=== PATIENT | male | born 1980 | race Caucasian/White ===

== ENCOUNTER 2017-06-23 17:52 | Emergency (ER) | payer BC ==
[2017-06-23] MEDS ORDERED: HYDROmorphone 0.5 MG/0.5 ML SYRINGE IVP STA (18:10)
[2017-06-23] MEDS ORDERED: KETOROLAC 30 MG/ML 1 ML VIAL IVP STA (18:10)
[2017-06-23] MEDS ORDERED: SODIUM CHLORIDE 0.9% 1,000 ML IV STA ×2 (18:10)
--- NOTE | 2017-06-23 18:18 | ED ---
Abdominal Pain HPI - General Chief Complaint: Abdominal Pain Stated Complaint: Abdominal pain Time Seen by Provider: 06/23/17 18:05 Source: patient, RN notes reviewed, old records reviewed Mode of arrival: ambulatory Limitations: no limitations - History of Present Illness Initial Comments: This is a 36-year-old male presents emergency Department chief complaint of severe right lower quadrant abdominal pain being towards his right flank. He has had this pain intermittently for the past 2 days it became very severe over the past 4 hours. Patient has had no fever or chills. Normal bowel movements and urinary habits. He reports that he had his appendix removed a few years ago. He still has his gallbladder, denies any history of kidney stones. Patient denies any recent fever, chills, shortness of breath, chest pain, back pain, abdominal pain, nausea vomiting, numbness or tingling, dysuria or hematuria, constipation or diarrhea, headaches or visual changes, or any other current symptoms - Related Data Previous Rx's Medication Instructions Recorded HYDROcodone/APAP 5-325MG [Bright[place] 1 tab PO Q6HR PRN #20 tab 06/23/17 5-325] Ketorolac [Toradol] 10 mg PO Q6HR #20 tab 06/23/17 Ondansetron Odt [Zofran Odt] 4 mg PO Q8HR PRN #12 tab 06/23/17 Tamsulosin [Flomax] 0.4 mg PO DAILY #10 cap 06/23/17 Allergies Allergy/AdvReac Type Severity Reaction Status Date / Time No Known Allergies Allergy Verified 06/23/17 18:53 Review of Systems ROS Statement: Those systems with pertinent positive or pertinent negative responses have been documented in the HPI. ROS Other: All systems not noted in ROS Statement are negative. Past Medical History Past Medical History: No Reported History History of Any Multi-Drug Resistant Organisms: None Reported Past Surgical History: Appendectomy, Hernia Repair Past Psychological History: No Psychological Hx Reported Smoking Status: Current every day smoker Past Alcohol Use History: None Reported Past Drug Use History: None Reported General Exam - General Exam Comments Initial Comments: This is a 36-year-old male, patient appears in moderate discomfort. Limitations: no limitations General appearance: alert, in no apparent distress Head exam: Present: atraumatic, normocephalic, normal inspection Eye exam: Present: normal appearance, PERRL, EOMI. Absent: scleral icterus, conjunctival injection, periorbital swelling ENT exam: Present: normal exam, mucous membranes moist Neck exam: Present: normal inspection. Absent: tenderness, meningismus, lymphadenopathy Respiratory exam: Present: normal lung sounds bilaterally. Absent: respiratory distress, wheezes, rales, rhonchi, stridor Cardiovascular Exam: Present: regular rate, normal rhythm, normal heart sounds. Absent: systolic murmur, diastolic murmur, rubs, gallop, clicks GI/Abdominal exam: Present: soft, tenderness (Right lower quadrant tenderness.) , normal bowel sounds. Absent: distended, guarding, rebound, rigid Extremities exam: Present: normal inspection, full ROM, normal capillary refill. Absent: tenderness, pedal edema, joint swelling, calf tenderness Back exam: Present: normal inspection Neurological exam: Present: alert, oriented X3, CN II-XII intact Psychiatric exam: Present: normal affect, normal mood Skin exam: Present: warm, dry, intact, normal color. Absent: rash Course Vital Signs 06/23/17 06/23/17 06/23/17 17:53 19:17 20:04 Temperature 98.3 F Pulse Rate 82 76 93 Respiratory 20 20 18 Rate Blood Pressure 156/88 159/94 131/59 O2 Sat by Pulse 99 99 95 Oximetry 06/23/17 20:36 Temperature 97.8 F Pulse Rate Respiratory Rate Blood Pressure O2 Sat by Pulse Oximetry Medical Decision Making - Medical Decision Making This is a 36-year-old male presents emergency Department chief complaint of severe right lower quadrant abdominal pain being towards his right flank. He has had this pain intermittently for the past 2 days it became very severe over the past 4 hours. Patient has had no fever or chills. Normal bowel movements and urinary habits. Patient does have significant right lower quadrant tenderness range towards right flank. Some minimal right CVA tenderness. Patient urinalysis positive for many red blood cells. Blood work was otherwise unremarkable. He is given IV fluids, pain medication and nausea medication. I did perform a CT without contrast. There is evidence of a 4 mm stone within the distal right ureter with evidence of hydronephrosis. I also give the patient a dose of Flomax, as well as further nausea and pain medicine. At this time I will discharge the patient with nausea medicine, pain medicine, Flomax. Discussed following up with urology. Discussed that his stone should pass. I did advise the patient on return parameters and he understands history plan will comply. - Lab Data Result diagrams: 06/23/17 18:21 06/23/17 18:21 Lab Results 06/23/17 06/23/17 06/23/17 Range/Units 18:21 18:21 18:21 WBC 9.8 (3.8-10.6) k/uL RBC 5.38 (4.30-5.90) m/uL Hgb 16.1 (13.0-17.5) gm/dL Hct 48.6 (39.0-53.0) % MCV 90.3 (80.0-100.0) fL MCH 29.9 (25.0-35.0) pg MCHC 33.1 (31.0-37.0) g/dL RDW 13.1 (11.5-15.5) % Plt Count 222 (150-450) k/uL Neutrophils % 45 % Lymphocytes % 42 % Monocytes % 5 % Eosinophils % 3 % Basophils % 1 % Neutrophils # 4.4 (1.3-7.7) k/uL Lymphocytes # 4.2 (1.0-4.8) k/uL Monocytes # 0.5 (0-1.0) k/uL Eosinophils # 0.3 (0-0.7) k/uL Basophils # 0.1 (0-0.2) k/uL Sodium 141 (137-145) mmol/L Potassium 4.4 (3.5-5.1) mmol/L Chloride 101 (98-107) mmol/L Carbon Dioxide 29 (22-30) mmol/L Anion Gap 11 mmol/L BUN 17 (9-20) mg/dL Creatinine 0.90 (0.66-1.25) mg/dL Est GFR (MDRD) Af Amer >60 (>60 ml/min/1.73 sqM) Est GFR (MDRD) Non-Af >60 (>60 ml/min/1.73 sqM) Glucose 108 H (74-99) mg/dL Plasma Lactic Acid Christian 1.2 (0.7-2.0) mmol/L Calcium 10.1 (8.4-10.2) mg/dL Total Bilirubin 0.4 (0.2-1.3) mg/dL AST 36 (17-59) U/L ALT 79 H (21-72) U/L Alkaline Phosphatase 82 (38-126) U/L Total Protein 7.9 (6.3-8.2) g/dL Albumin 4.7 (3.5-5.0) g/dL Amylase 52 (30-110) U/L Lipase 93 (23-300) U/L Urine Color Urine Appearance (Clear) Urine pH (5.0-8.0) Ur Specific [place] (1.001-1.035) Urine Protein (Negative) Urine Glucose (UA) (Negative) Urine Ketones (Negative) Urine Blood (Negative) Urine Nitrite (Negative) Urine Bilirubin (Negative) Urine Urobilinogen (<2.0) mg/dL Ur Leukocyte Esterase (Negative) Urine RBC (0-5) /hpf Urine WBC (0-5) /hpf Ur Squamous Epith Cells (0-4) /hpf Urine Bacteria (None) /hpf Urine Mucus (None) /hpf 06/23/17 Range/Units 18:21 WBC (3.8-10.6) k/uL RBC (4.30-5.90) m/uL Hgb (13.0-17.5) gm/dL Hct (39.0-53.0) % MCV (80.0-100.0) fL MCH (25.0-35.0) pg MCHC (31.0-37.0) g/dL RDW (11.5-15.5) % Plt Count (150-450) k/uL Neutrophils % % Lymphocytes % % Monocytes % % Eosinophils % % Basophils % % Neutrophils # (1.3-7.7) k/uL Lymphocytes # (1.0-4.8) k/uL Monocytes # (0-1.0) k/uL Eosinophils # (0-0.7) k/uL Basophils # (0-0.2) k/uL Sodium (137-145) mmol/L Potassium (3.5-5.1) mmol/L Chloride (98-107) mmol/L Carbon Dioxide (22-30) mmol/L Anion Gap mmol/L BUN (9-20) mg/dL Creatinine (0.66-1.25) mg/dL Est GFR (MDRD) Af Amer (>60 ml/min/1.73 sqM) Est GFR (MDRD) Non-Af (>60 ml/min/1.73 sqM) Glucose (74-99) mg/dL Plasma Lactic Acid Christian (0.7-2.0) mmol/L Calcium (8.4-10.2) mg/dL Total Bilirubin (0.2-1.3) mg/dL AST (17-59) U/L ALT (21-72) U/L Alkaline Phosphatase (38-126) U/L Total Protein (6.3-8.2) g/dL Albumin (3.5-5.0) g/dL Amylase (30-110) U/L Lipase (23-300) U/L Urine Color Yellow Urine Appearance Clear (Clear) Urine pH 6.0 (5.0-8.0) Ur Specific [place] 1.016 (1.001-1.035) Urine Protein Negative (Negative) Urine Glucose (UA) Negative (Negative) Urine Ketones Negative (Negative) Urine Blood Moderate H (Negative) Urine Nitrite Negative (Negative) Urine Bilirubin Negative (Negative) Urine Urobilinogen <2.0 (<2.0) mg/dL Ur Leukocyte Esterase Negative (Negative) Urine RBC 69 H (0-5) /hpf Urine WBC 1 (0-5) /hpf Ur Squamous Epith Cells <1 (0-4) /hpf Urine Bacteria Rare H (None) /hpf Urine Mucus Rare H (None) /hpf - Radiology Data Radiology results: report reviewed CT shows right sided hydronephrosis with hydroureter with a small obstructing calculus in the distal right ureter. Tachycardia was measures 4 mm. Disposition Clinical Impression: Right ureteral stone Disposition: HOME SELF-CARE Condition: Good Instructions: Ureteral Stones (ED) Additional Instructions: Patient is to rest, increase her fluid intake. Take the medications as prescribed. Follow-up with urologist. Return to emergency department if any alarming signs or symptoms occur. Prescriptions: HYDROcodone/APAP 5-325MG [Bright[place] 5-325] 1 tab PO Q6HR PRN #20 tab PRN Reason: Pain Ketorolac [Toradol] 10 mg PO Q6HR #20 tab Ondansetron Odt [Zofran Odt] 4 mg PO Q8HR PRN #12 tab PRN Reason: Nausea Tamsulosin [Flomax] 0.4 mg PO DAILY #10 cap Referrals: Alexis Langford MD [Primary Care Provider] - 1-2 days William Schmitt MD [STAFF PHYSICIAN] - 1-2 days Time of Disposition: 20:21
[2017-06-23 18:58] LABS: Basophils # (A) 0.1 k/uL (0-0.2); Basophils % (A) 1 %; Eosinophils # (A) 0.3 k/uL (0-0.7); Eosinophils % (A) 3 %; HCT 48.6 % (39.0-53.0); HGB 16.1 gm/dL (13.0-17.5); Lymphocytes # (A) 4.2 k/uL (1.0-4.8); Lymphocytes % (A) 42 %; MCH 29.9 pg (25.0-35.0); MCHC 33.1 g/dL (31.0-37.0); MCV 90.3 fL (80.0-100.0); Mean Platelet Volume 8.2; Monocytes # (A) 0.5 k/uL (0-1.0); Monocytes % (A) 5 %; Neutrophils # (A) 4.4 k/uL (1.3-7.7); Neutrophils % (A) 45 %; Platelet Count 222 k/uL (150-450); RBC 5.38 m/uL (4.30-5.90); RDW 13.1 % (11.5-15.5); WBC 9.8 k/uL (3.8-10.6)
[2017-06-23 19:02] LABS: Appearance,Urine Clear (Clear); Bacteria,Urine Rare /hpf; Bilirubin,Urine Negative (Negative); Blood,Urine Moderate (Negative); Color,Urine Yellow; Glucose,Urine (UA) Negative (Negative); Ketones,Urine Negative (Negative); Leukocyte Esterase,Urine Negative (Negative); Mucus,Urine Rare /hpf; Nitrite,Urine Negative (Negative); Protein,Urine Negative (Negative); RBC,Urine 69 /hpf (0-5); Specific Gravity,Urine 1.016 (1.001-1.035); Squamous Epithelial Cell,Urine <1 /hpf (0-4); Urobilinogen,Urine <2.0 mg/dL (<2.0); WBC,Urine 1 /hpf (0-5)
[2017-06-23] MEDS ORDERED: HYDROmorphone 2 MG/ML 1 ML SYRINGE IVP STA (19:11)
[2017-06-23] MEDS ORDERED: ONDANSETRON 4 MG/2 ML VIAL IVP STA (19:11)
[2017-06-23 19:13] LABS: ALT 79 U/L (21-72); AST 36 U/L (17-59); Albumin 4.7 g/dL (3.5-5.0); Alkaline Phosphatase 82 U/L (38-126); Amylase 52 U/L (30-110); Anion Gap 11 mmol/L; Blood Urea Nitrogen 17 mg/dL (9-20); Calcium 10.1 mg/dL (8.4-10.2); Carbon Dioxide 29 mmol/L (22-30); Chloride 101 mmol/L (98-107); Glucose 108 mg/dL (74-99); Lipase 93 U/L (23-300); Potassium 4.4 mmol/L (3.5-5.1); Sodium 141 mmol/L (137-145); Total Bilirubin 0.4 mg/dL (0.2-1.3); Total Protein 7.9 g/dL (6.3-8.2)
--- NOTE | 2017-06-23 19:46 | CT ---
EXAMINATION TYPE: CT abdomen pelvis wo con DATE OF EXAM: 06/23/2017 COMPARISON: NONE HISTORY: RLQ and back pain. No prior. CT DLP: 802.4 mGycm Automated exposure control for dose reduction was used. TECHNIQUE: Helical acquisition of images was performed from the lung bases through the pelvis. FINDINGS: Lung bases are clear. There is no pleural effusion. Liver spleen pancreas gallbladder appear normal. Bile ducts are not dilated. There is no adrenal mass. Kidneys have normal size. There is mild right-s ided hydronephrosis and hydroureter. There is a 4 mm calculus in the distal right ureter. Bladder is almost empty. There is no pelvic mass. I see no intestinal wall thickening. There are no dilated loop s. Appendix is not seen. There is no sign of appendicitis. There is no retroperitoneal adenopathy. I see no bony destructive process. IMPRESSION: THERE IS RIGHT-SIDED HYDRONEPHROSIS AND HYDROURETER WITH SMALL OBSTRUCTING CALCULUS IN THE DISTAL RIG HT URETER.
[2017-06-23] MEDS ORDERED: TAMSULOSIN 0.4 MG CAP.ER.24H PO STA (19:51)
[2017-06-23 20:06] VITALS: BP 131/59; PULSE 93; RESP 18
[2017-06-23 20:39] VITALS: TEMP 97.8
== END 2017-06-23 20:37 | disposition home or self-care (01) ==
LOC: EC 17:52
DX: N13.2 Hydronephrosis with renal and ureteral calculous obstruction (principal); F17.200 Nicotine dependence, unspecified, uncomplicated; Z90.49 Acquired absence of other specified parts of digestive tract; Z98.890 Other specified postprocedural states
CPT/HCPCS: 36415; 80053; 82150; 83605; 83690; 85025; 81001; 87040; 74176; 99285; 96374; 96376; 96375 ×2; 96361 ×2; J1170 ×2; J2405; J1885

== ENCOUNTER 2018-04-20 21:26 | Observation (INO) | payer BC ==
[2018-04-20] MEDS ORDERED: SODIUM CHLORIDE 0.9% 500 ML 500 ML IV STA (21:36)
[2018-04-20] MEDS ORDERED: ASPIRIN 81 MG PO STA (21:36)
--- NOTE | 2018-04-20 21:49 | ED ---
Chest Pain HPI - General Chief Complaint: Chest Pain Stated Complaint: Chest Pain Time Seen by Provider: 04/20/18 21:32 Source: patient Mode of arrival: ambulatory Limitations: no limitations - History of Present Illness Initial Comments: 37-year-old male patient presents to the emergency department today with chief complaint of chest pain. Patient states that he had pain present in his chest when he woke from sleep this morning. Patient states it is a dull, achy, vague pain to the substernal chest that radiates into the left shoulder. Patient states that he did go to work but did feel fatigued and unwell throughout the day. States he is having hot flashes and was becoming nauseated. Patient denies any shortness of breath or dizziness with this. He states that he did have some heartburn today. He denies any cough or congestion. States he does have history of high cholesterol. He is a cigarette smoker. Does have a family history of coronary artery disease in both his father and grandfather. Patient denies any recent rash, fever, chills, abdominal pain, diarrhea, constipation, back pain, numbness, tingling, weakness, hematuria, dysuria, urinary urgency, urinary frequency, headache, visual changes, or any other complaints. - Related Data Home Medications Medication Instructions Recorded Confirmed No Known Home Medications 04/20/18 04/20/18 Allergies Allergy/AdvReac Type Severity Reaction Status Date / Time No Known Allergies Allergy Verified 04/20/18 21:41 Review of Systems ROS Statement: Those systems with pertinent positive or pertinent negative responses have been documented in the HPI. ROS Other: All systems not noted in ROS Statement are negative. EKG Findings - EKG Comments: EKG Findings:: EKG obtained at 2137 shows normal sinus rhythm with possible left atrial enlargement. Ventricular rate 98, CT interval 146, QRS duration 84 , QT 352, QTc 449. No evidence of ST elevation or depression. Past Medical History Past Medical History: No Reported History History of Any Multi-Drug Resistant Organisms: None Reported Past Surgical History: Appendectomy, Hernia Repair Past Psychological History: No Psychological Hx Reported Smoking Status: Current every day smoker Past Alcohol Use History: None Reported Past Drug Use History: None Reported General Exam Limitations: no limitations General appearance: alert, in no apparent distress, other (This is a well- developed, well-nourished adult male patient in no acute distress. Vital signs upon presentation are temperature 99.0F, pulse 96, respirations 18, blood pressure 129/87, pulse ox 98% on room air.) Eye exam: Present: normal appearance, PERRL, EOMI. Absent: scleral icterus, conjunctival injection, periorbital swelling ENT exam: Present: normal exam, normal oropharynx, mucous membranes moist Respiratory exam: Present: normal lung sounds bilaterally. Absent: respiratory distress, wheezes, rales, rhonchi, stridor, chest wall tenderness Cardiovascular Exam: Present: regular rate, normal rhythm, normal heart sounds. Absent: systolic murmur, diastolic murmur, rubs, gallop, clicks GI/Abdominal exam: Present: soft, normal bowel sounds. Absent: distended, tenderness, guarding, rebound, rigid Neurological exam: Present: alert, oriented X3, CN II-XII intact Psychiatric exam: Present: normal affect, normal mood Skin exam: Present: warm, dry, intact, normal color. Absent: rash Course Vital Signs 04/20/18 04/20/18 21:27 22:00 Temperature 99.0 F Pulse Rate 96 89 Respiratory 18 22 Rate Blood Pressure 129/87 127/84 O2 Sat by Pulse 98 96 Oximetry Chest Pain MDM - MDM RADIOLOGY: Two-view x-ray of the chest is obtained. Heart mediastinum are normal. Lungs are clear. Diaphragm is normal. Bony thorax intact. There are chest leads. Impression by Dr. Anderson shows normal chest. MDM: 37-year-old male patient presented to the emergency department today for complaints of substernal chest pain radiating into the left shoulder. Patient also reported hot flashes and nausea throughout the day today. EKG showed normal sinus rhythm. Lungs are clear to auscultation with good air movement. Pain was not reproducible upon palpation. Labs reviewed and are unremarkable, initial troponin was negative. Chest x-ray showed no acute cardiopulmonary process. Given patient's symptoms and risk factors we will admit patient for evaluation by cardiology in the morning. We will start heparin. He is admitted to Dr. Ames's service. Disposition Clinical Impression: Chest pain Disposition: ADMITTED IP TO THIS [facility] Condition: Serious Referrals: Alexis Langford MD [Primary Care Provider] - 1-2 days Decision to Admit Reason: Admit from EC Decision Date: 04/20/18 Decision Time: 22:52
[2018-04-20 21:52] LABS: Basophils % (A) 1 %; Eosinophils # (A) 0.3 k/uL (0-0.7); Eosinophils % (A) 4 %; HCT 43.6 % (39.0-53.0); HGB 15.3 gm/dL (13.0-17.5); Lymphocytes # (A) 2.2 k/uL (1.0-4.8); Lymphocytes % (A) 31 %; MCH 31.5 pg (25.0-35.0); MCHC 35.2 g/dL (31.0-37.0); MCV 89.4 fL (80.0-100.0); Mean Platelet Volume 7.9; Monocytes # (A) 0.5 k/uL (0-1.0); Monocytes % (A) 7 %; Neutrophils % (A) 56 %; Platelet Count 189 k/uL (150-450); RBC 4.87 m/uL (4.30-5.90); RDW 12.3 % (11.5-15.5); WBC 7.1 k/uL (3.8-10.6)
[2018-04-20 22:02] LABS: ALT 98 U/L (21-72); AST 47 U/L (17-59); Albumin 4.3 g/dL (3.5-5.0); Alkaline Phosphatase 67 U/L (38-126); Anion Gap 9 mmol/L; Blood Urea Nitrogen 16 mg/dL (9-20); Calcium 9.6 mg/dL (8.4-10.2); Carbon Dioxide 26 mmol/L (22-30); Chloride 102 mmol/L (98-107); Glucose 193 mg/dL (74-99); Magnesium 1.9 mg/dL (1.6-2.3); Potassium 4.3 mmol/L (3.5-5.1); Sodium 137 mmol/L (137-145); Total Bilirubin 0.6 mg/dL (0.2-1.3); Total Protein 7.2 g/dL (6.3-8.2)
[2018-04-20 22:03] LABS: Partial Thromboplastin Time 25.9 sec (22.0-30.0); Prothrombin Time 9.5 sec (9.0-12.0)
[2018-04-20 22:10] LABS: Creatine Kinase 93 U/L (55-170)
[2018-04-20 22:23] LABS: Troponin I <0.012 ng/mL (0.000-0.034)
--- NOTE | 2018-04-20 22:35 | XR ---
EXAMINATION TYPE: XR chest 2V DATE OF EXAM: 04/20/2018 COMPARISON: NONE HISTORY: Chest pain TECHNIQUE: Frontal and lateral views of the chest are obtained. FINDINGS: Heart and mediastinum are normal. Lungs are clear. Diaphragm is normal. Bony thorax is int act. There are chest leads. IMPRESSION: Normal chest
[2018-04-20] MEDS ORDERED: MORPHINE SULFATE 2 MG/ML SYRINGE IVP PRN (22:48)
[2018-04-20] MEDS ORDERED: NITROGLYCERIN SL TABS 0.4 MG TAB SUBLINGUAL PRN (22:48)
[2018-04-20] MEDS ORDERED: HEPARIN SODIUM,PORCINE 5,000 UNIT/ML 1 ML VIAL IV ONE (22:48)
[2018-04-20] MEDS ORDERED: HEPARIN SOD,PORK IN 0.45% NACL 25,000 UNIT in 0.45% NACL 1 500ML.BAG IV SCH (23:00)
[2018-04-21 00:57] VITALS: BMI 31.8
[2018-04-21 05:00] LABS: Creatine Kinase 90 U/L (55-170)
[2018-04-21 05:05] VITALS: RESP 16
[2018-04-21 05:12] LABS: Creatine Kinase MB 1.1 ng/mL (0.0-2.4); Troponin I <0.012 ng/mL (0.000-0.034)
[2018-04-21 06:11] LABS: Mean Platelet Volume 7.5; Platelet Count 194 k/uL (150-450)
[2018-04-21 06:26] LABS: Cholesterol 240 mg/dL (<200); HDL Cholesterol 39 mg/dL (40-60); Triglycerides 406 mg/dL (<150)
[2018-04-21] MEDS ORDERED: ASPIRIN 325 MG TAB PO SCH (09:00)
[2018-04-21] MEDS: FENOFIBRATE 54 MG TAB PO SCH ×2 (11:58→12:03)
[2018-04-21 12:31] VITALS: BP 137/85; PULSE 97; TEMP 98.1
--- NOTE | 2018-04-21 12:42 | P.CRDCN ---
History of Present Illness History of present illness: This is a pleasant 37-year-old male past medical history significant for dyslipidemia on chronic nicotine dependence. He denies history of coronary artery disease, hypertension, diabetes mellitus and has never followed social service liaison for any reason. We've been asked to see him in consultation for chest pain. He states he woke up yesterday morning with a dull pressure senstation in the left precordial region. There is no radiation to the arm, back, neck or jaw. He denies associated shortness of breath, nausea, vomiting, palpitations, dizziness or diaphoresis. He proceeded to work as usual and worked all day long at a physically active job. The pain remained there all day long as a dull ache with no additional symptoms. At the end of the day he went home and started feeling flushed and nauseated. He presented to ED due to the additional symptoms that started. He states he still has the dull chest pain at the time of my exam, but the nausea has subsided. He denies shortness of breath, dizziness, palpitations or diaphoresis. He also denies cough, fever or chills. At the time of my exam: CONSTITUTIONAL: Denies fever. Denies chills. EYES: Denies blurred vision. Denies vision changes. Denies eye pain. EARS, NOSE, MOUTH & THROAT: Denies headache. Denies sore throat. Denies ear pain. CARDIOVASCULAR: Denies chest pain. Denies shortness of breath. Denies orthopnea. Denies PND. Denies palpitations. RESPIRATORY: Denies cough. GASTROINTESTINAL: Denies abdominal pain. Denies diarrhea. Denies constipation. Denies nausea. Denies vomiting. MUSCULOSKELETAL: Denies myalgias. INTEGUMENTARY: Denies pruitis. Denies rash. NEUROLOGIC: Denies numbness. Denies tingling. Denies weakness. PSYCHIATRIC: Denies anxiety. Denies depression. ENDOCRINE: Denies fatigue. Denies weight change. Denies polydipsia. Denies polyurina. GENITOURINARY: Denies burning, hematuria or urgency with micturation. HEMATOLOGIC: Denies history of anemia. Denies bleeding. Blood pressure 114/75 heart rate 77 afebrile maintaining oxygen saturation on room air GENERAL: This is a 37-year-old in no apparent distress at the time of my examination. HEENT: Head is atraumatic, normocephalic. Pupils are equal, round. Sclerae anicteric. Conjunctivae are clear. Mucous membranes of the mouth are moist. Neck is supple. There is no jugular venous distention. No carotid bruit is heard. LUNGS: Clear to auscultation no wheezes, rales or rhonchi. No chest wall tenderness is noted on palpation or with deep breathing. HEART: Regular rate and rhythm without murmurs, rubs or gallops. S1 and S2 heard. ABDOMEN: Soft, nontender. Bowel sounds are heard. No organomegaly noted. EXTREMITIES: No evidence of peripheral edema and no calf tenderness noted. VASCULAR: Radial and dorsalis pedis pulses palpated, no evidence of clubbing. NEUROLOGIC: Patient is awake, alert and oriented x3. ASSESSMENT Chest pain, atypical. An acute coronary event has been ruled out with no evidence of ischemia and negative cardiac enzymes. Hypertriglyceridemia Dyslipidemia Chronic nicotine dependence PLAN An acute coronary event has been ruled out with no EKG evidence of ischemia and negative cardiac enzymes. Obtain 2D echocardiogram and doppler study to assess cardiac structure and function. Perform exercise stress test to assess for stress induced cardiac ischemia. If abnormal will consider coronary angiography. Check TSH and hemoglobin A1c for underlying cause of hypertriglyceridemia. Recommend initiating him on fenofibrate 54 mg daily as well as initiating lifestyle modifications for lowering of triglycerides and total cholesterol. Smoking cessation discussed and highly recommended. Follow up with Dr. Amaya in 2-3 weeks. Thank you kindly for this consultation. Nurse Practitioner note has been reviewed, I agree with a documented findings and plan of care. Patient was seen and examined. Past Medical History Past Medical History: Hyperlipidemia History of Any Multi-Drug Resistant Organisms: None Reported Past Surgical History: Appendectomy, Hernia Repair Past Anesthesia/Blood Transfusion Reactions: No Reported Reaction Past Psychological History: No Psychological Hx Reported Smoking Status: Current every day smoker Past Alcohol Use History: None Reported Past Drug Use History: None Reported - Past Family History Father Family Medical History: Myocardial Infarction ([place]) Additional Family Medical History / Comment(s): possible small heart attack Mother Family Medical History: CVA/TIA Medications and Allergies Home Medications Medication Instructions Recorded Confirmed Type Fenofibrate [Lofibra] 54 mg PO DAILY #90 tab 04/21/18 Rx Allergies Allergy/AdvReac Type Severity Reaction Status Date / Time No Known Allergies Allergy Verified 04/20/18 21:41 Physical Exam Vitals: Vital Signs Temp Pulse Pulse Resp BP BP Pulse Ox 04/21/18 04:00 98.7 F 78 16 123/64 97 04/21/18 00:45 98.1 F 86 18 110/72 98 04/21/18 00:01 75 20 117/70 100 04/21/18 00:00 18 04/20/18 23:30 82 14 134/97 96 04/20/18 23:29 98.6 F 04/20/18 23:00 93 25 H 134/97 94 L 04/20/18 22:30 79 14 127/78 95 04/20/18 22:00 89 22 127/84 96 04/20/18 21:27 99.0 F 96 18 129/87 98 Intake and Output 04/20/18 04/21/18 04/21/18 22:59 06:59 14:59 Intake Total 139.667 Balance 139.667 Intake: Intake, IV Titration 139.667 Amount Heparin Sod,Pork in 0.45% 139.667 NaCl 25,000 unit In 0.45 % NaCl 1 500ml.bag @ 22 mls/hr IV .[id number] [facility] Rx #:[id number] Other: # Voids 2 Weight 95.254 kg 95.2 kg Results 04/21/18 05:46 04/20/18 21:40 Cardiac Enzymes 04/20/18 04/20/18 04/21/18 Range/Units 21:40 21:40 04:04 AST 47 (17-59) U/L CK-MB (CK-2) 1.0 1.1 (0.0-2.4) ng/mL Troponin I <0.012 <0.012 (0.000-0.034) ng/mL Coagulation 04/20/18 04/21/18 Range/Units 21:40 05:46 PT 9.5 (9.0-12.0) sec APTT 25.9 29.7 (22.0-30.0) sec Lipids 04/21/18 Range/Units 05:46 Triglycerides 406 H (<150) mg/dL Cholesterol 240 H (<200) mg/dL HDL Cholesterol 39 L (40-60) mg/dL CBC 04/20/18 04/21/18 Range/Units 21:40 05:46 WBC 7.1 (3.8-10.6) k/uL RBC 4.87 (4.30-5.90) m/uL Hgb 15.3 (13.0-17.5) gm/dL Hct 43.6 (39.0-53.0) % Plt Count 189 194 (150-450) k/uL Comprehensive Metabolic Panel 04/20/18 Range/Units 21:40 Sodium 137 (137-145) mmol/L Potassium 4.3 (3.5-5.1) mmol/L Chloride 102 (98-107) mmol/L Carbon Dioxide 26 (22-30) mmol/L BUN 16 (9-20) mg/dL Creatinine 0.78 (0.66-1.25) mg/dL Glucose 193 H (74-99) mg/dL Calcium 9.6 (8.4-10.2) mg/dL AST 47 (17-59) U/L ALT 98 H (21-72) U/L Alkaline Phosphatase 67 (38-126) U/L Total Protein 7.2 (6.3-8.2) g/dL Albumin 4.3 (3.5-5.0) g/dL Current Medications Generic Name Dose Route Start Last Admin Trade Name Freq PRN Reason Stop Dose Admin Aspirin 325 mg 04/21/18 09:00 04/21/18 07:38 Aspirin PO 325 mg DAILY AVTAR Administration Heparin Sodium/Sodium Chloride 500 mls @ 22 mls/hr 04/20/18 23:00 04/21/18 06 :35 25,000 unit/ Sodium Chloride IV 13.49 units/kg/hr .[id number] AVTAR 25.7 mls/hr Titration Protocol Morphine Sulfate 2 mg 04/20/18 22:48 Morphine Sulfate (Inj) IVP Q5M PRN Chest Pain Nitroglycerin 0.4 mg 04/20/18 22:48 Nitrostat SUBLINGUAL Q5M PRN Chest Pain Intake and Output 04/20/18 04/21/18 04/21/18 22:59 06:59 14:59 Intake Total 139.667 Balance 139.667 Intake: Intake, IV Titration 139.667 Amount Heparin Sod,Pork in 0.45% 139.667 NaCl 25,000 unit In 0.45 % NaCl 1 500ml.bag @ 22 mls/hr IV .[id number] [facility] Rx #:[id number] Other: # Voids 2 Weight 95.254 kg 95.2 kg 04/21/18 05:46 04/20/18 21:40
--- NOTE | 2018-04-21 13:49 | ECHOF ---
Referral Reason:cp MEASUREMENTS -------- HEIGHT: 172.7 cm WEIGHT: 94.8 kg BP: 123/64 RVIDd: 3.2 cm (< 3.3) IVSd: 1.3 cm (0.6 - 1.1) LVIDd: 3.6 cm (3.9 - 5.3) LVPWd: 1.1 cm (0.6 - 1.1) IVSs: 1.3 cm LVIDs: 2.6 cm LVPWs: 1.3 cm LAESV Index (A-L): 11.98 ml/m Ao Diam: 2.8 cm (2.0 - 3.7) AV Cusp: 1.8 cm (1.5 - 2.6) LA Diam: 3.0 cm (2.7 - 3.8) EPSS: 0.3 cm MV E Hugo: 0.94 m/s MV DecT: 172 ms MV A Hugo: 0.70 m/s MV E/A Ratio: 1.35 RAP: 5.00 mmHg RVSP: 12.10 mmHg MV EF SLOPE: 65.69 mm/s (70 - 150) MV EXCURSION: 1.59 cm (> 18.000) FINDINGS -------- Sinus rhythm. This was a technically difficult study with suboptimal views. The left ventricular size is normal. There is mild concentric left ventricular hypertrophy. Overa ll left ventricular systolic function is normal with, an EF between 55 - 60 %. The right ventricle is normal in size and function. Normal LA size by volume 22+/-6 ml/m2. The right atrium is normal in size. 3 ml of Lumason was utilized for enhancement of images. The aortic valve is trileaflet, and appears structurally normal. No aortic stenosis or regurgitation. The mitral valve is normal. There is trace to mild mitral regurgitation. Trace tricuspid regurgitation present. Right ventricular systolic pressure is normal at < 35 mmHg. There is no evidence of pulmonary hypertension. Trace/mild (physiologic) pulmonic regurgitation. The aortic root size is normal. Normal inferior vena cava with normal inspiratory collapse consistent with estimated right atrial pre ssure of 5 mmHg. There is no pericardial effusion. CONCLUSIONS -------- 1. Sinus rhythm. 2. This was a technically difficult study with suboptimal views. 3. The left ventricular size is normal. 4. There is mild concentric left ventricular hypertrophy. 5. Overall left ventricular systolic function is normal with, an EF between 55 - 60 %. 6. Normal LA size by volume 22+/-6 ml/m2. 7. 3 ml of Lumason was utilized for enhancement of images. 8. The aortic valve is trileaflet, and appears structurally normal. No aortic stenosis or regurgitati on. 9. There is trace to mild mitral regurgitation. 10. Trace tricuspid regurgitation present. 11. Right ventricular systolic pressure is normal at < 35 mmHg. 12. There is no evidence of pulmonary hypertension. 13. Trace/mild (physiologic) pulmonic regurgitation. 14. The aortic root size is normal. 15. There is no pericardial effusion. BUSINESS REPORTER: Mannie Choudhury RDCS
--- NOTE | 2018-04-21 13:55 | EST ---
EXERCISE STRESS AGE: 37 SEX: M HT: 68" WT: 209 PROTOCOL: Arpit Stress Test STAGE: 3 DURATION OF EXERCISE: 9:00 HEART RATE REST: 92 BLOOD PRESSURE REST: 126/74 MAXIMUM HEART RATE ACHIEVED: 158 MAXIMUM BLOOD PRESSURE: 170/88 85% MPHR: 156 100% MPHR: 183 METS: 10.1 INDICATIONS: Chest pain. CLINICAL INFORMATION: STRESS DATA: Pretesting physical examination showed a heart rate of 92, pressure is 126/74 mmHg. Baseline EKG showed sinus mechanism. The patient exercised on the treadmill according to Arpit protocol for a total of 9 minutes and achieved 10.1 METS. Max heart rate was 158 which is about 86% of maximum predicted heart rate. Maximum blood pressure was 170/88 mmHg. Clinically, the patient did not have any symptoms of chest pain or chest discomfort during the testing or in the recovery period. The EKG did not show any significant ST or T-wave abnormalities concerning for ischemia. CONCLUSION: 1. Excellent exercise tolerance. 2. Normal EKG in response to exercise. 3. Essentially normal stress test for the patient. MMODL / IJN: [id number] /
[2018-04-21] MEDS ORDERED: NICOTINE 21MG/24HR PATCH TRANSDERM SCH (14:15)
--- NOTE | 2018-04-21 15:12 | DS ---
DISCHARGE SUMMARY HISTORY AND PHYSICAL/DISCHARGE SUMMARY: DATE OF ADMISSION: 04/20/2018 DATE OF DISCHARGE: 04/21/2018 DATE OF SERVICE: 04/21/2018 PRESENTING COMPLAINT: Chest pain. HISTORY OF PRESENTING COMPLAINT: This is a pleasant 37-year-old patient of Dr. Langford. Chronic stable medical conditions include hyperlipidemia, migraines. Patient presented with 1-day history of left parasternal dull stabbing pain, present constant on and off for most of the day. No shortness of breath. No dizziness. No lightheadedness. No fever. No chills. No cough. Somewhat worse with activity. Patient is reasonably active. No prior cardiac history. Patient's father had a heart attack and patient's grandfather had 3 heart attacks. Patient is concerned and decided to come in. REVIEW OF SYSTEMS: CONSTITUTIONAL: None. HEENT: None. RESPIRATORY: None. CARDIOVASCULAR: As above. GASTROINTESTINAL: None. GENITOURINARY: None. MUSCULOSKELETAL: As above. DERMATOLOGICAL: None. HEMATOLOGICAL: None. LYMPHATIC: None. PSYCHIATRY: None. NEUROLOGICAL: None. PAST MEDICAL HISTORY: Of migraines, hyperlipidemia. PAST SURGICAL HISTORY: Appendectomy, hernia repair. SOCIAL HISTORY: Patient has smoked a pack a day. Lives by himself with his kids. 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 Does not drink any alcohol. FAMILY HISTORY: Grandfather 3 attacks. Father had 1 heart attack. HOME MEDICATIONS: Lofibra 54 mg a day. ALLERGIES: None. PHYSICAL EXAMINATION: Temperature 98.1, pulse 97., respiration 16, blood pressure 137/85, pulse ox 96% on room air. GENERAL APPEARANCE: Well built, BMI 31.9. Sitting up, comfortable. EYES: Pupils are, conjunctivae are normal. HEENT: External appearance of nose and ears normal. Oral cavity normal. NECK: JVD not raised. Mass not palpable. RESPIRATORY: Effort normal. Lungs are clear. CARDIOVASCULAR: First and second sounds are normal, no edema. ABDOMEN: Soft, nontender. Liver and spleen not palpable. LYMPHATIC: No lymph node palpable in neck or axillae. PSYCHIATRY: Alert and oriented x3. Mood and affect normal. NEUROLOGICAL: Pupils equal. Cranial nerves grossly intact. Power and sensation grossly intact. INVESTIGATIONS: White count 7.1, hemoglobin 15.3, potassium 4.3, triglycerides 406, TSH 2.4. Troponin x2 negative. Chest x-ray film, personally reviewed by me, showed some cardiomegaly with lung arana are clear. EKG tracing personally reviewed by me shows normal sinus rhythm. A 2D echocardiogram, EF of 55%-60%, otherwise unremarkable. Stress test showed good exercise tolerance. ASSESSMENT: 1. Left anterior chest wall pain probably musculoskeletal. Cardiac cause was ruled out. Initially felt to be cardiac given patient's risk factors of hyperlipidemia, smoking and positive family history and obesity. 2. Chronic nicotine dependence, patient is a cigarette smoker. 3. Hyperlipidemia. 4. Obesity, body mass index of 31.9. PLAN: Patient did have a stress test that was negative. Advised against smoking, given a nicotine patch. Patient will be discharged on the baby aspirin and his lipid lower medication. Patient to lose weight. Should follow up with his family doctor. DISCHARGE MEDICATIONS: 1. Aspirin 81 mg a day. 2. Lofibra 90 mg a day. 3. Nicotine patch 21 mg a day. FOLLOWUP: Follow up with Dr. Langford in a week. Follow up with Dr. Amaya in 2 weeks. MMODL / IJN: [id number] /
[2018-04-21 20:22] LABS: Hemoglobin A1C 6.1 % (4.0-6.0)
== END 2018-04-21 14:57 | disposition home or self-care (01) ==
LOC: EC 21:26 → 1SOBS 23:34
PROVIDERS: ADMIT Hospitalist; ATTEND Hospitalist
DX: R07.89 Other chest pain (principal); R11.0 Nausea; R53.83 Other fatigue; R23.2 Flushing; E78.5 Hyperlipidemia, unspecified; E78.1 Pure hyperglyceridemia; G43.909 Migraine, unspecified, not intractable, without status migrainosus; Z68.31 Body mass index [BMI] 31.0-31.9, adult; E66.9 Obesity, unspecified; F17.210 Nicotine dependence, cigarettes, uncomplicated; Z90.89 Acquired absence of other organs; Z82.49 Family history of ischemic heart disease and other diseases of the circulatory system; Z82.3 Family history of stroke
CPT/HCPCS: 96376; 96365; 99285; 36415; 93005; 93017; 93306; 80061; 80053; 84443; 82550 ×2; 82553 ×2; 83735; 84484 ×2; 85025; 85049; 85610; 85730 ×2; 83036; 71046; G0378 ×2; J1644 ×2; Q9950

== ENCOUNTER 2019-09-29 16:00 | Emergency (ER) | payer BC ==
--- NOTE | 2019-09-29 16:21 | ED ---
Headache HPI - General Chief Complaint: Headache Stated Complaint: head pain Time Seen by Provider: 09/29/19 16:20 Mode of arrival: ambulatory Limitations: no limitations - History of Present Illness Initial Comments: Patient presents the ED for evaluation of headache. Patient states that he developed a sudden onset right temporoparietal headache 9 days ago while jogging, and he states that he has had an intermittent right-sided headache ever since then. Patient also states that he has had intermittent blurry vision out of his left eye since his headache began. Patient states that he has a history of migraine headaches, but he denies having this type of a headache in the past. Patient states that he has been alternating ibuprofen and Tylenol today without much relief. Patient states that his headache is currently 7/10. Patient states that his headache is worse with activity. Patient states that he has a family history of brain aneurysms. Patient denies trauma or injury, LOC, neck pain or stiffness, fever or chills, focal numbness or weakness, speech diffic ulty, dizziness, chest pain, dyspnea, cough or cold symptoms, palpitations, nausea or vomiting, abdominal pain, or any other symptoms or complaints. - Related Data Previous Rx's Medication Instructions Recorded Aspirin 81 mg PO DAILY #30 chewable 04/21/18 Fenofibrate [Lofibra] 54 mg PO DAILY #90 tab 04/21/18 Nicotine 21Mg/24Hr Patch [Habitrol] 1 patch TRANSDERM DAILY #30 patch 04/21/18 Allergies Allergy/AdvReac Type Severity Reaction Status Date / Time No Known Allergies Allergy Verified 09/29/19 16:08 Review of Systems ROS Statement: Those systems with pertinent positive or pertinent negative responses have been documented in the HPI. ROS Other: All systems not noted in ROS Statement are negative. Past Medical History Past Medical History: Hyperlipidemia, Sleep Apnea/CPAP/BIPAP Additional Past Medical History / Comment(s): migraines History of Any Multi-Drug Resistant Organisms: None Reported Past Surgical History: Appendectomy, Hernia Repair Past Anesthesia/Blood Transfusion Reactions: No Reported Reaction Past Psychological History: No Psychological Hx Reported Smoking Status: Current every day smoker Past Alcohol Use History: None Reported Past Drug Use History: None Reported - Past Family History Father Family Medical History: Myocardial Infarction (DC) Additional Family Medical History / Comment(s): possible small heart attack Mother Family Medical History: CVA/TIA General Exam Limitations: no limitations General appearance: alert, in no apparent distress Head exam: Present: atraumatic, normocephalic, other (No scalp/facial/temporal swelling or tenderness is appreciated) Eye exam: Present: normal appearance, PERRL, EOMI ENT exam: Present: normal oropharynx, mucous membranes moist Neck exam: Present: other (No nuchal rigidity; trachea is in midline). Absent: tenderness, meningismus Respiratory exam: Present: normal lung sounds bilaterally. Absent: respiratory distress, wheezes, rales, rhonchi Cardiovascular Exam: Present: regular rate, normal rhythm, normal heart sounds, other (Normal radial pulses bilaterally) GI/Abdominal exam: Present: soft. Absent: distended, tenderness, guarding Extremities exam: Present: full ROM. Absent: pedal edema Neurological exam: Present: alert, oriented X3, CN II-XII intact. Absent: motor sensory deficit Psychiatric exam: Present: normal affect, normal mood Skin exam: Present: warm, dry, intact, normal color Course Vital Signs 09/29/19 16:03 Temperature 98.1 F Pulse Rate 92 Respiratory 18 Rate Blood Pressure 142/97 O2 Sat by Pulse 99 Oximetry - Reevaluation(s) Reevaluation #1: 09/29/19 17:56 Patient states that his headache has improved with ED treatment, and he denies development of any new symptoms while in the ED. Patient remains alert and breathing comfortably. Patient continues to have a normal/nonfocal neurological exam. Patient is aware of his test results, and he is comfortable being discharged home at this time. Medical Decision Making - Medical Decision Making Patient's CT angiogram head is negative for acute intracranial abnormality or aneurysm. Patient has a history of migraine headaches. I suspect a benign etiology of the patient's headaches. Patient was counseled about headaches, and he was clearly explained return and follow-up instructions. He feels comfortable with this plan. - Lab Data Result diagrams: 09/29/19 16:20 09/29/19 16:20 Lab Results 09/29/19 09/29/19 Range/Units 16:20 16:20 WBC 9.3 (3.8-10.6) k/uL RBC 5.25 (4.30-5.90) m/uL Hgb 16.0 (13.0-17.5) gm/dL Hct 47.1 (39.0-53.0) % MCV 89.6 (80.0-100.0) fL MCH 30.4 (25.0-35.0) pg MCHC 33.9 (31.0-37.0) g/dL RDW 12.0 (11.5-15.5) % Plt Count 226 (150-450) k/uL Neutrophils % 55 % Lymphocytes % 32 % Monocytes % 6 % Eosinophils % 5 % Basophils % 1 % Neutrophils # 5.2 (1.3-7.7) k/uL Lymphocytes # 2.9 (1.0-4.8) k/uL Monocytes # 0.5 (0-1.0) k/uL Eosinophils # 0.5 (0-0.7) k/uL Basophils # 0.1 (0-0.2) k/uL Sodium 136 L (137-145) mmol/L Potassium 4.4 (3.5-5.1) mmol/L Chloride 102 (98-107) mmol/L Carbon Dioxide 26 (22-30) mmol/L Anion Gap 8 mmol/L BUN 16 (9-20) mg/dL Creatinine 0.74 (0.66-1.25) mg/dL Est GFR (CKD-EPI)AfAm >90 (>60 ml/min/1.73 sqM) Est GFR (CKD-EPI)NonAf >90 (>60 ml/min/1.73 sqM) Glucose 119 H (74-99) mg/dL Calcium 9.7 (8.4-10.2) mg/dL - Radiology Data Radiology results: report reviewed (CT angiogram head shows no acute intracranial abnormality and no aneurysm) Disposition Clinical Impression: Headache Disposition: HOME SELF-CARE Condition: Stable Instructions (If sedation given, give patient instructions): Acute Headache (ED), Migraine Headache (ED) Additional Instructions: Return to the ER immediately should you develop new or worsening pain, neck stiffness, a fever, numbness or weakness, speech or vision changes, dizziness, chest pain, shortness of breath, persistent vomiting, or new or worsening symptoms. Follow up closely with your primary care provider. Is patient prescribed a controlled substance at d/c from ED?: No Referrals: Alexis Langford MD [Primary Care Provider] - 1-2 days Time of Disposition: 17:58
[2019-09-29] MEDS ORDERED: METOCLOPRAMIDE 5 MG/ML 2 ML VIAL IVP STA (16:27)
[2019-09-29] MEDS ORDERED: SODIUM CHLORIDE 0.9% 1,000 ML IV STA (16:27)
[2019-09-29] MEDS ORDERED: diphenhydrAMINE 50 MG/ML 1 ML VIAL IVP STA (16:27)
[2019-09-29 16:46] LABS: Basophils # (A) 0.1 k/uL (0-0.2); Basophils % (A) 1 %; Eosinophils # (A) 0.5 k/uL (0-0.7); Eosinophils % (A) 5 %; HCT 47.1 % (39.0-53.0); Lymphocytes # (A) 2.9 k/uL (1.0-4.8); Lymphocytes % (A) 32 %; MCH 30.4 pg (25.0-35.0); MCHC 33.9 g/dL (31.0-37.0); MCV 89.6 fL (80.0-100.0); Mean Platelet Volume 8.5; Monocytes # (A) 0.5 k/uL (0-1.0); Monocytes % (A) 6 %; Neutrophils # (A) 5.2 k/uL (1.3-7.7); Neutrophils % (A) 55 %; Platelet Count 226 k/uL (150-450); RBC 5.25 m/uL (4.30-5.90); WBC 9.3 k/uL (3.8-10.6)
[2019-09-29 17:07] LABS: Sodium 136 mmol/L (137-145)
[2019-09-29 17:08] LABS: African American GFR (CKD) >90 (>60 ml/min/1.73 sqM); Anion Gap 8 mmol/L; Blood Urea Nitrogen 16 mg/dL (9-20); Calcium 9.7 mg/dL (8.4-10.2); Carbon Dioxide 26 mmol/L (22-30); Chloride 102 mmol/L (98-107); Glucose 119 mg/dL (74-99); Non-African American GFR(CKD) >90 (>60 ml/min/1.73 sqM); Potassium 4.4 mmol/L (3.5-5.1)
--- NOTE | 2019-09-29 17:23 | CT ---
EXAMINATION TYPE: CT head without contrast CT angio head DATE OF EXAM: 09/29/2019 COMPARISON: None HISTORY: 39-year-old male with right-sided headache, family history of aneurysms TECHNIQUE: Contiguous axial scanning of the head performed without and with IV Contrast, patient inje cted with 100 mL of Isovue 370. Coronal/sagittal MIP reconstructions performed. 3-D reconstructions g enerated on a dedicated independent workstation. CT DLP: 1985.6 mGycm Automated exposure control for dose reduction was used. FINDINGS: Initial noncontrast CT of the head shows no evidence of acute intracranial hemorrhage, acute ischemic change, mass, mass effect, midline shift, or extra-axial fluid collection. No hydrocephalus. No effa cement of cerebral sulci or basal subarachnoid cisterns. Parada-white matter differentiation is maintai sumit. Mild mucosal thickening ethmoid air cells. Scattered fluid within the bilateral mastoid air cells. Or bits and globes appear intact. After IV contrast administration, there is a dominant right vertebral artery. Small posterior indicat ing arteries are demonstrated. Prostate circulation is patent. The internal carotid arteries and remainder of the anterior circulation is patent. Dural venous sinuses are patent. No aneurysmal change is seen. IMPRESSION: 1. NO ACUTE INTRACRANIAL ABNORMALITY SEEN. 2. NO LARGE VESSEL INTRACRANIAL ARTERIAL OCCLUSION OR ANEURYSMAL CHANGE IS SEEN. 3. MILD CHRONIC ETHMOID SINUS DISEASE. 4. SCATTERED FLUID WITHIN THE BILATERAL MASTOID AIR CELLS. CORRELATE FOR ANY MASTOID PAIN TO EXCLUDE MASTOIDITIS.
[2019-09-29 18:00] VITALS: BP 119/73; PULSE 80; RESP 17; TEMP 98.3
== END 2019-09-29 18:14 | disposition home or self-care (01) ==
LOC: EC 16:00
DX: G43.909 Migraine, unspecified, not intractable, without status migrainosus (principal); G47.30 Sleep apnea, unspecified; F17.200 Nicotine dependence, unspecified, uncomplicated; Z99.89 Dependence on other enabling machines and devices
CPT/HCPCS: 36415; 80048; 85025; 70496; 99284; 96374; 96375; 96361; J1200; J2765; Q9967

== ENCOUNTER 2020-08-28 09:21 | Observation (INO) | payer BC, OTHER ==
[2020-08-28] MEDS ORDERED: ASPIRIN 81 MG PO STA (09:34)
--- NOTE | 2020-08-28 09:37 | ED ---
Chest Pain HPI - General Source: patient, RN notes reviewed Mode of arrival: ambulatory Limitations: no limitations <Jose Norton - Last Filed: 08/28/20 12:16> <Cate Lal - Last Filed: 09/01/20 15:46> - General Chief Complaint: Chest Pain Stated Complaint: Chest pain Time Seen by Provider: 08/28/20 09:27 - History of Present Illness Initial Comments: This a 39-year-old male presents emergency Department chief complaint of chest pain, shortness breath. Patient states started last night progressively wors ened throughout the night. Patient states that he feels like he cannot get enough air in. He has some centralized chest pressure. Patient does admit that he is a former smoker quit 5 months ago. Patient does take medications for hypertension and has been told he has hyperlipidemia. Patient denies any fevers chills had a slight cough no abdominal pain. Patient denies any sick contacts. No leg pain leg swelling no prior cardiac disease. (Jose Norton) - Related Data Home Medications Medication Instructions Recorded Confirmed Clobetasol Propionate [Temovate 1 applic TOPICAL BID PRN 08/28/20 08/28/20 0.05% Cream] Metoprolol Succinate (ER) [Toprol 75 mg PO DAILY 08/28/20 08/28/20 XL] Prevident 5000 Toothpaste 1 applic PO BID 08/28/20 08/28/20 Previous Rx's Medication Instructions Recorded predniSONE [Deltasone] 40 mg PO DAILY 4 Days #8 tab 08/29/20 Allergies Allergy/AdvReac Type Severity Reaction Status Date / Time No Known Allergies Allergy Verified 08/28/20 11:23 Review of Systems ROS Other: All systems not noted in ROS Statement are negative. <Jose Norton - Last Filed: 08/28/20 12:16> ROS Other: All systems not noted in ROS Statement are negative. <Cate Lal - Last Filed: 09/01/20 15:46> ROS Statement: Those systems with pertinent positive or pertinent negative responses have been documented in the HPI. EKG Findings - EKG Comments: EKG Findings:: EKG performed at 10:08 normal sinus rhythm rate of 66 VT 150 QRS 84 QT /QTC 400/419 - EKG Results: EKG: interpreted by ERMD <Dedoe,Jose M - Last Filed: 08/28/20 12:16> Past Medical History Past Medical History: Hyperlipidemia, Hypertension, Sleep Apnea/CPAP/BIPAP Additional Past Medical History / Comment(s): migraines History of Any Multi-Drug Resistant Organisms: None Reported Past Surgical History: Appendectomy, Hernia Repair Past Anesthesia/Blood Transfusion Reactions: No Reported Reaction Past Psychological History: No Psychological Hx Reported Smoking Status: Former smoker Past Alcohol Use History: None Reported Past Drug Use History: None Reported - Past Family History Father Family Medical History: Myocardial Infarction (SD) Additional Family Medical History / Comment(s): possible small heart attack Mother Family Medical History: CVA/TIA <Jose Norton M - Last Filed: 08/28/20 12:16> General Exam Limitations: no limitations General appearance: alert, in no apparent distress Head exam: Present: atraumatic, normocephalic, normal inspection Eye exam: Present: normal appearance, PERRL, EOMI. Absent: scleral icterus, conjunctival injection, periorbital swelling ENT exam: Present: normal exam, normal oropharynx, mucous membranes moist Neck exam: Present: normal inspection, full ROM. Absent: tenderness, meningismus, lymphadenopathy Respiratory exam: Present: normal lung sounds bilaterally. Absent: respiratory distress, wheezes, rales, rhonchi, stridor Cardiovascular Exam: Present: regular rate, normal rhythm, normal heart sounds. Absent: systolic murmur, diastolic murmur, rubs, gallop, clicks GI/Abdominal exam: Present: soft, normal bowel sounds. Absent: distended, tenderness, guarding, rebound, rigid Back exam: Absent: CVA tenderness (R), CVA tenderness (L) Neurological exam: Present: alert, oriented X3 Skin exam: Present: warm, dry, intact, normal color. Absent: rash <ErrolJose M - Last Filed: 08/28/20 12:16> Course Vital Signs 08/28/20 08/28/20 08/28/20 09:23 10:11 11:55 Temperature 97.4 F L 97.6 F 97.6 F Pulse Rate 87 71 66 Pulse Rate [ Left] Respiratory 18 18 18 Rate Blood Pressure 146/76 109/62 101/54 Blood Pressure [Left Arm] O2 Sat by Pulse 98 97 99 Oximetry 08/28/20 08/28/20 17:56 18:16 Temperature 97.6 F Pulse Rate 68 Pulse Rate [ 76 Left] Respiratory 16 16 Rate Blood Pressure 102/78 Blood Pressure 141/89 [Left Arm] O2 Sat by Pulse 99 Oximetry Chest Pain MDM <Cate Lal - Last Filed: 09/01/20 15:46> - MDM I was available for consultation in the emergency department. The history and physical exam were done by the midlevel provider. I was consulted for this patients care. I reviewed the case with the midlevel provider and based on their presentation of the patient, I agree with the assessment, medical decision making and plan of care as documented. Chart was dictated using [employer] dictation software. Attempts were made to correct any dictation errors however some typographical errors may persist. Patient was seen during a national state of emergency due to the Covid-19 pandemic. (Cate Lal) Disposition <Jose Norton - Last Filed: 08/28/20 12:16> <Cate Lal - Last Filed: 09/01/20 15:46> Clinical Impression: Chest pain Disposition: ADMITTED IP TO THIS HOSP
[2020-08-28 10:26] LABS: Basophils % (A) 0 %; Eosinophils # (A) 0.2 k/uL (0-0.7); Eosinophils % (A) 3 %; HCT 44.5 % (39.0-53.0); HGB 15.3 gm/dL (13.0-17.5); Lymphocytes # (A) 2.3 k/uL (1.0-4.8); Lymphocytes % (A) 35 %; MCH 30.8 pg (25.0-35.0); MCHC 34.4 g/dL (31.0-37.0); MCV 89.5 fL (80.0-100.0); Mean Platelet Volume 8.3; Monocytes # (A) 0.4 k/uL (0-1.0); Monocytes % (A) 6 %; Neutrophils # (A) 3.5 k/uL (1.3-7.7); Neutrophils % (A) 54 %; Platelet Count 217 k/uL (150-450); RBC 4.97 m/uL (4.30-5.90); RDW 12.4 % (11.5-15.5); WBC 6.5 k/uL (3.8-10.6)
[2020-08-28 10:46] LABS: D-Dimer 0.19 mg/L FEU (<0.60); INR 0.9 (<1.2); Partial Thromboplastin Time 23.4 sec (22.0-30.0); Prothrombin Time 9.7 sec (9.0-12.0)
[2020-08-28 10:51] LABS: ALT 109 U/L (4-49); AST 56 U/L (17-59); African American GFR (CKD) >90 (>60 ml/min/1.73 sqM); Alkaline Phosphatase 92 U/L (38-126); Anion Gap 4 mmol/L; Blood Urea Nitrogen 18 mg/dL (9-20); Calcium 9.3 mg/dL (8.4-10.2); Carbon Dioxide 28 mmol/L (22-30); Chloride 104 mmol/L (98-107); Glucose 217 mg/dL (74-99); Magnesium 1.9 mg/dL (1.6-2.3); Non-African American GFR(CKD) >90 (>60 ml/min/1.73 sqM); Potassium 4.4 mmol/L (3.5-5.1); Sodium 136 mmol/L (137-145); Total Bilirubin 0.5 mg/dL (0.2-1.3); Total Protein 6.7 g/dL (6.3-8.2)
--- NOTE | 2020-08-28 10:51 | XR ---
EXAMINATION TYPE: XR chest 2V DATE OF EXAM: 08/28/2020 COMPARISON: None INDICATION: Cough short of breath chest pain TECHNIQUE: Frontal and lateral views of the chest are obtained. FINDINGS: The heart size is normal. The pulmonary vasculature is normal. The lungs are clear. IMPRESSION: 1. No acute pulmonary process.
[2020-08-28] MEDS ORDERED: HEPARIN SODIUM,PORCINE 5,000 UNIT/ML 1 ML VIAL IV ONE (12:17)
[2020-08-28] MEDS ORDERED: HEPARIN SODIUM,PORCINE 5,000 UNIT/ML 1 ML VIAL IV PRN (12:17)
[2020-08-28] MEDS ORDERED: NITROGLYCERIN SL TABS 0.4 MG TAB SUBLINGUAL PRN (12:17)
[2020-08-28] MEDS ORDERED: HEPARIN SOD,PORK IN 0.45% NACL 25,000 UNIT in 0.45% NACL 1 250ML.BAG IV SCH (12:30)
--- NOTE | 2020-08-28 23:03 | P.HPIM ---
History of Present Illness H&P Date: 08/28/20 Chief Complaint: Chest pain Patient is a 39-year-old male with known history of hypertension, hyperlipidemia, obstructive sleep apnea on CPAP at home, previous history of smoking quit 5 months ago presents to ER with the complaints of chest pain for the past 36 hours. Patient states that last night chest pain progressively got worse throughout the night and was associated with shortness of breath unable to take a deep breath. Chest pain is mainly in the mid retrosternal radiating to the back. Dull constant pain No radiation to the right arm. No cough or sputum production. No headache or dizziness or lightheadedness. No fever no chills. No recent illnesses or sick contacts. No leg swelling. Patient is also complaining of exertional dyspnea when he walks in the stores. Patient states that his cousin had acute NC at age 37 recently. Review of Systems Constitutional: Patient denies any fever or chills . No generalized weakness or weight loss. Abdomen: Patient denied nausea vomiting and diarrhea and abdominal pain. Cardiovascular: Patient does come in of chest pain radiating to the back. Constant dull. No palpitations. No leg swelling. Respiratory: patient denied any cough is from production. No shortness of breath Neurologic: Patient denied any numbness or tingling headache. Musculoskeletal: Patient denies any complaints of joint swelling or deformity. Skin: Negative Psychiatric: Negative Endocrine: No heat or cold intolerance. No recent weight gain. Genitourinary: No dysuria or hematuria. All other 14 point ROS negative except the above Past Medical History Past Medical History: Hyperlipidemia, Hypertension, Sleep Apnea/CPAP/BIPAP Additional Past Medical History / Comment(s): migraines History of Any Multi-Drug Resistant Organisms: None Reported Past Surgical History: Appendectomy, Hernia Repair Past Anesthesia/Blood Transfusion Reactions: No Reported Reaction Past Psychological History: No Psychological Hx Reported Smoking Status: Former smoker Past Alcohol Use History: None Reported Past Drug Use History: None Reported - Past Family History Father Family Medical History: Myocardial Infarction ([place]) Additional Family Medical History / Comment(s): possible small heart attack Mother Family Medical History: CVA/TIA Medications and Allergies Home Medications Medication Instructions Recorded Confirmed Type Clobetasol Propionate [Temovate 1 applic TOPICAL BID PRN 08/28/20 08/28/20 History 0.05% Cream] Metoprolol Succinate (ER) [Toprol 75 mg PO DAILY 08/28/20 08/28/20 History Xl] Prevident 5000 Toothpaste 1 applic PO BID 08/28/20 08/28/20 History Allergies Allergy/AdvReac Type Severity Reaction Status Date / Time No Known Allergies Allergy Verified 08/28/20 11:23 Physical Exam Vitals: Vital Signs Temp Pulse Pulse Resp BP BP Pulse Ox 08/28/20 21:05 98.3 F 55 L 18 115/69 98 08/28/20 19:38 16 08/28/20 18:16 76 16 141/89 08/28/20 17:56 97.6 F 68 16 102/78 99 08/28/20 11:55 97.6 F 66 18 101/54 99 08/28/20 10:11 97.6 F 71 18 109/62 97 08/28/20 09:23 97.4 F L 87 18 146/76 98 Intake and Output 08/28/20 08/28/20 08/28/20 06:59 14:59 22:59 Intake Total 531.122 Balance 531.122 Intake: Intake, IV Titration 81.122 Amount Heparin Sod,Pork in 0.45% 81.122 NaCl 25,000 unit In 0.45 % NaCl 1 250ml.bag @ 9.2 UNITS/KG/HR 10.015 mls/hr IV .Q24H AVTAR Rx#: [id number] Oral 450 Other: Voiding Method Toilet # Voids 1 Weight 108.862 kg 108.862 kg PHYSICAL EXAMINATION: Patient is lying in the bed comfortably, no acute distress, awake alert and oriented.. HEENT: Normocephalic. Neck is supple. Pupils reactive. Nostrils clear. Oral cavity is moist. Ears reveal no drainage. Neck reveals no JVD, carotid bruits, or thyromegaly. CHEST EXAMINATION: Trachea is central. Symmetrical expansion. Lung arana clear to auscultation and percussion. CARDIAC: Normal S1, S2 with no gallops. No murmurs ABDOMEN: Soft. Bowel sounds normal. No organomegaly. No abdominal bruits. Extremities: reveal no edema. No clubbing or cyanosis Neurologically awake, alert, oriented x3 with well-coordinated movements. No focal deficits noted Skin: No rash or skin lesions. Psychiatric: Coperative. Nonsuicidal Musculoskeletal: No joint swelling or deformity. Normal range of motion. Results CBC & Chem 7: 08/28/20 09:51 08/28/20 09:51 Labs: Abnormal Lab Results - Last 24 Hours (Table) 08/28/20 Range/Units 09:51 Sodium 136 L (137-145) mmol/L Glucose 217 H (74-99) mg/dL ALT 109 H (4-49) U/L Thrombosis Risk Factor Assmnt - DVT/VTE Prophylaxis DVT/VTE Prophylaxis: Pharmacologic Prophylaxis ordered - Choose All That Apply Any of the Below Risk Factors Present?: Yes Each Factor Represents 1 point: Obesity (BMI >25) Other Risk Factors: No Thrombosis Risk Factor Assessment Total Risk Factor Score: 1 Thrombosis Risk Factor Assessment Level: Low Risk Assessment and Plan Assessment: Atypical chest pain/unstable angina. Rule out ACS. Hypertension Hyperlipidemia Obstructive sleep apnea on CPAP at home Previous history of smoking quit 5 months ago DVT prophylaxis. Plan: Patient was admitted to hospital with retrosternal chest pain, constant dull pain. Patient was started on heparin drip and follow serial EKGs and troponins. D-dimer is not elevated. Continue with telemetry monitoring. Pain management and cardiology was consulted. Patient will be started on aspirin and lipid panel was ordered. Home medications and CPAP at night. Continue to follow closely and further recommendations based on clinical course. Time with Patient: Greater than 30
[2020-08-28] MEDS ORDERED: IPRATROPIUM-ALBUTEROL 3 ML NEB INHALATION PRN (23:04)
[2020-08-29 08:32] VITALS: RESP 16
[2020-08-29] MEDS ORDERED: ASPIRIN 325 MG TAB PO SCH (09:00)
--- NOTE | 2020-08-29 10:31 | ECHOF ---
Referral Reason:chest pain MEASUREMENTS -------- HEIGHT: 170.2 cm WEIGHT: 108.9 kg BP: 101/54 RVIDd: 3.0 cm (< 3.3) IVSd: 1.2 cm (0.6 - 1.1) LVIDd: 3.7 cm (3.9 - 5.3) LVPWd: 1.1 cm (0.6 - 1.1) IVSs: 1.6 cm LVIDs: 2.3 cm LVPWs: 1.7 cm LA Diam: 3.4 cm (2.7 - 3.8) Ao Diam: 2.8 cm (2.0 - 3.7) AV Cusp: 1.9 cm (1.5 - 2.6) MV EXCURSION: 14.642 mm (> 18.000) MV EF SLOPE: 133 mm/s (70 - 150) EPSS: 0.3 cm MV E Hugo: 1.07 m/s MV DecT: 134 ms MV A Hugo: 0.71 m/s MV E/A Ratio: 1.51 RAP: 5.00 mmHg RVSP: 34.32 mmHg FINDINGS -------- Sinus rhythm. This was a technically difficult study with suboptimal apical views. The left ventricular size is normal. There is borderline concentric left ventricular hypertrophy. Overall left ventricular systolic function is normal with, an EF between 55 - 60 %. The right ventricle is normal in size. Interatrial and interventricular septum intact. The aortic valve is trileaflet and appears structurally normal. The mitral valve is normal. Mild tricuspid regurgitation present. There is borderline pulmonary artery hypertension. The righ t ventricular systolic pressure, as measured by Doppler, is 34.32mmHg. Trace/mild (physiologic) pulmonic regurgitation. The aortic root size is normal. IVC Not well visulized. There is no pericardial effusion. CONCLUSIONS -------- 1. The left ventricular size is normal. 2. There is borderline concentric left ventricular hypertrophy. 3. Overall left ventricular systolic function is normal with, an EF between 55 - 60 %. 4. Interatrial and interventricular septum intact. 5. The aortic valve is trileaflet and appears structurally normal. 6. The mitral valve is normal. 7. Mild tricuspid regurgitation present. 8. There is borderline pulmonary artery hypertension. 9. The right ventricular systolic pressure, as measured by Doppler, is 34.32mmHg. 10. Trace/mild (physiologic) pulmonic regurgitation. 11. There is no pericardial effusion. CLERICAL AIDE: Bella Ronquillo RDCS
[2020-08-29 11:01] LABS: Platelet Count 200 X 10*3/uL (140-440)
--- NOTE | 2020-08-29 11:17 | P.STRESS ---
- Stress Test Note Stress Test Results/Findings: Exam Performed: stress test Exam Date: 08/29/20 Reason for Exam: cp Height: 5 ft 7 in Weight: 108.86 kg Protocol: diamante Stage: 4 Duration of Exercise: 5:40 Resting Heart Rate: 64 Resting Blood Pressure: 118/81 Maximum Achieved Heart Rate: 155 Maximum Achieved Blood Pressure: 169/80 85% PMHR: 154 100% PMHR: 181 METS: 8.7 Technologist Comment: Stress Test Results/Findings: This is a 39-year-old gentleman admitted to the hospital chest pains. Patient has history of hypertension being evaluated for cardiac status. Stress data: Baseline EKG showed sinus rhythm with small when necessary for constipation with J-point elevation inferolateral leads. Blood pressure at rest is 118/80. Pulse rate of 64. Patient walked on the Diamante protocol for about 8 minutes and 42 seconds achieving a maximum of 155 with a blood pressure 130/84. Patient complained of mild chest discomfort during exercise. EKGs taken during and after exercise did not reveal any changes to suggest ischemia. No arrhythmias are detected. Final impression: #1. Good exercise capacity #2 patient complained of atypical chest pain #3. Negative stress test #4. No arrhythmias detected
[2020-08-29] MEDS ORDERED: predniSONE 20 MG TAB PO STA (13:07)
--- NOTE | 2020-08-29 14:16 | P.CRDCN ---
History of Present Illness History of present illness: HISTORY OF PRESENTING ILLNESS This is a pleasant 39-year-old male past medical history significant for hypertension, hyperlipidemia, former nicotine dependence (quit 5 months ago, was smoking 1ppd for 21 years). 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 We have been asked to see in consultation for chest pain. Patient states he started having chest pain last , 08/21, at work. He works at [employer] on the [place] and stated that he started having chest pain shortness of breath while working. This chest pain was a pressure that felt dull. The pain lasts about 1520 minutes and then resolved on its own. Patient did not take anything for the chest pain. Patient does endorse associated shortness of breath. On Tuesday night around 7 PM patient started to have dull chest pain with resting. Patient denies exertional chest pain. Does have exertional shortness of breath walking up the stairs or doing other activities around the house. Chest pain continued until morning. Patient states that the pain starts at 2/10 and then increases to about a 5/10. Patient denies any associated palpitations, lower extremity edema, fatigue, lightheadedness, syncop e. The chest pain is nonradiating. Patient is a former smoker. He denies alcohol and illicit drug use. He denies history of diabetes, MS, stroke. He denies any symptoms of orthopnea, PND. Laboratory data reviewed, troponins negative 3, d-dimer 0.1, sodium 136, potassium 4.4, creatinine 0.77, BUN 18, COVID-19 negative. Vital signs blood pressure 108/65, heart rate 62, retaining oxygen saturations on room air, afebrile Current home cardiac medications include Toprol 75 mg daily.. Patient presented to the hospital in 2018 with chest pain. Exercise stress test was performed which was normal. Echocardiogram revealed EF 55-60%, mild MR, trace TR. Triglycerides were 406, Cholesterol 240. TSH was normal, Hgb A1C was 6.1. Patient was started on fenofibrate and was to follow up with Dr. Amaya, however, patient did not follow up and did not take this medication. DIAGNOSTICS Initial EKG reveals sinus rhythm with early repolarization in inferior leads no significant changes from prior Telemetry tracings indicate sinus rhythm. Chest xray No acute cardiopulmonary process. REVIEW OF SYSTEMS At the time of my exam: CONSTITUTIONAL: Denies fever or chills. CARDIOVASCULAR: + chest pain, +shortness of breath, Denies orthopnea, PND or palpitations. RESPIRATORY: Denies cough. GASTROINTESTINAL: Denies abdominal pain, diarrhea, constipation, nausea or vomiting. MUSCULOSKELETAL: Denies myalgias. NEUROLOGIC: Denies numbness, tingling, headacbe or weakness. ENDOCRINE: Denies fatigue, weight change, polydipsia or polyurina. GENITOURINARY: Denies burning, hematuria or urgency with micturation. HEMATOLOGIC: Denies history of anemia or bleeding. PHYSICAL EXAMINATION CONSTITUTIONAL: No apparent distress. HEENT: Head is normocephalic. Pupils are equal, round. Sclerae anicteric. Mucous membranes of the mouth are moist. No JVD. No carotid bruit. CHEST EXAMINATION: Lungs are clear to auscultation. No chest wall tenderness is noted on palpation or with deep breathing. HEART EXAMINATION: Regular rate and rhythm. S1, S2 heard. No murmurs, gallops or rub. ABDOMEN: Soft, nontender. Positive bowel sounds. EXTREMITIES: 2+ peripheral pulses, no lower extremity edema and no calf tender ness. SKIN: intact NEUROLOGIC EXAMINATION: Patient is awake, alert and oriented x3. ASSESSMENT Chest pain, atypical. An acute coronary event has been ruled out with no evidence of ischemia and negative cardiac enzymes. Dyslipidemia Former nicotine dependence PLAN An acute coronary event has been ruled out with no EKG evidence of ischemia and negative cardiac enzymes. Obtain 2D echocardiogram and doppler study to assess cardiac structure and function. Perform exercise stress test to assess for stress induced cardiac ischemia. If abnormal will consider coronary angiography. If stress test and echocardiogram with no acute findings patient can be discharged from cardiology perspective Follow up with Dr. Avila. Thank you kindly for this consultation. Nurse Practitioner note has been reviewed, I agree with a documented findings and plan of care. Patient was seen and examined. Past Medical History Past Medical History: Hyperlipidemia, Hypertension, Sleep Apnea/CPAP/BIPAP Additional Past Medical History / Comment(s): migraines History of Any Multi-Drug Resistant Organisms: None Reported Past Surgical History: Appendectomy, Hernia Repair Past Anesthesia/Blood Transfusion Reactions: No Reported Reaction Past Psychological History: No Psychological Hx Reported Smoking Status: Former smoker Past Alcohol Use History: None Reported Past Drug Use History: None Reported - Past Family History Father Family Medical History: Myocardial Infarction ([place]) Additional Family Medical History / Comment(s): possible small heart attack Mother Family Medical History: CVA/TIA Medications and Allergies Home Medications Medication Instructions Recorded Confirmed Type Clobetasol Propionate [Temovate 1 applic TOPICAL BID PRN 08/28/20 08/28/20 History 0.05% Cream] Metoprolol Succinate (ER) [Toprol 75 mg PO DAILY 08/28/20 08/28/20 History Xl] Prevident 5000 Toothpaste 1 applic PO BID 08/28/20 08/28/20 History Allergies Allergy/AdvReac Type Severity Reaction Status Date / Time No Known Allergies Allergy Verified 08/28/20 11:23 Physical Exam Vitals: Vital Signs Temp Pulse Resp BP Pulse Ox 08/28/20 11:55 97.6 F 66 18 101/54 99 08/28/20 10:11 97.6 F 71 18 109/62 97 08/28/20 09:23 97.4 F L 87 18 146/76 98 Intake and Output 08/27/20 08/28/20 08/28/20 22:59 06:59 14:59 Other: Weight 108.862 kg Results 08/29/20 07:32 08/28/20 09:51 Cardiac Enzymes 08/28/20 08/28/20 Range/Units 09:51 09:51 AST 56 (17-59) U/L Troponin I <0.012 (0.000-0.034) ng/mL Coagulation 08/28/20 Range/Units 09:51 PT 9.7 (9.0-12.0) sec APTT 23.4 (22.0-30.0) sec CBC 08/28/20 Range/Units 09:51 WBC 6.5 (3.8-10.6) k/uL RBC 4.97 (4.30-5.90) m/uL Hgb 15.3 (13.0-17.5) gm/dL Hct 44.5 (39.0-53.0) % Plt Count 217 (150-450) k/uL Comprehensive Metabolic Panel 08/28/20 Range/Units 09:51 Sodium 136 L (137-145) mmol/L Potassium 4.4 (3.5-5.1) mmol/L Chloride 104 (98-107) mmol/L Carbon Dioxide 28 (22-30) mmol/L BUN 18 (9-20) mg/dL Creatinine 0.77 (0.66-1.25) mg/dL Glucose 217 H (74-99) mg/dL Calcium 9.3 (8.4-10.2) mg/dL AST 56 (17-59) U/L ALT 109 H (4-49) U/L Alkaline Phosphatase 92 (38-126) U/L Total Protein 6.7 (6.3-8.2) g/dL Albumin 4.0 (3.5-5.0) g/dL Current Medications Generic Name Dose Route Start Last Admin Trade Name Freq PRN Reason Stop Dose Admin Aspirin 325 mg 08/29/20 09:00 Aspirin 325 Mg Tab PO DAILY [facility] Heparin Sodium (Porcine) 0 unit 08/28/20 12:17 Heparin Sodium,Porcine 5,000 Unit/Ml 1 Ml Vial IV Q6HR PRN Low PTT Protocol Heparin Sodium/Sodium Chloride 250 mls @ 10.015 mls/hr 08/28/20 12:30 25,000 unit/ Sodium Chloride IV .Q24H AVTAR Protocol 9.2 UNITS/KG/HR Nitroglycerin 0.4 mg 08/28/20 12:17 Nitroglycerin Sl Tabs 0.4 Mg Tab SUBLINGUAL Q5M PRN Chest Pain Intake and Output 08/27/20 08/28/20 08/28/20 22:59 06:59 14:59 Other: Weight 108.862 kg Patient Weight 08/29/20 06:59 Weight 108.862 kg 08/28/20 09:51 08/28/20 09:51
[2020-08-29 15:20] LABS: Chol/HDL Ratio 5.81; LDL Cholesterol,Calculated 140.6 mg/dL (0.0-131.0); VLDL Calculation 37.4 mg/dL (5.00-40.00)
[2020-08-29 15:29] VITALS: BP 117/80; PULSE 88; TEMP 98
== END 2020-08-29 17:49 | disposition home or self-care (01) ==
LOC: EC 09:21 → 6NMEDSUR 12:47
PROVIDERS: ADMIT Hospitalist; ATTEND Hospitalist
DX: R07.89 Other chest pain (principal); R06.02 Shortness of breath; E78.5 Hyperlipidemia, unspecified; I10 Essential (primary) hypertension; I36.1 Nonrheumatic tricuspid (valve) insufficiency; G43.909 Migraine, unspecified, not intractable, without status migrainosus; Z20.822 Contact with and (suspected) exposure to COVID-19; G47.33 Obstructive sleep apnea (adult) (pediatric); E66.9 Obesity, unspecified; Z68.37 Body mass index [BMI] 37.0-37.9, adult; Z79.899 Other long term (current) drug therapy; Z87.891 Personal history of nicotine dependence; Z99.89 Dependence on other enabling machines and devices; Z90.49 Acquired absence of other specified parts of digestive tract; Z82.49 Family history of ischemic heart disease and other diseases of the circulatory system; Z82.3 Family history of stroke
CPT/HCPCS: 96376 ×2; 96366 ×3; 93005 ×2; 96365; 99285; 36415; 93017; 93306; 85379; 80061; 80053; 83735; 84484; 85025; 85049; 85610; 85730 ×2; 87635; 71046; G0378 ×2; J1644 ×2; J7512; Q9950

== ENCOUNTER 2021-02-08 21:29 | Emergency (ER) | payer BC ==
[2021-02-08 21:46] VITALS: BP 117/81; PULSE 82; RESP 18; TEMP 98.2
[2021-02-08] MEDS ORDERED: TOPICAL SKIN ADHESIVE 1 EACH AMP TOPICAL ONE (21:53)
--- NOTE | 2021-02-08 22:26 | ED ---
Wound/Laceration HPI - General Chief Complaint: Wound/Laceration Stated Complaint: L hand injury Time Seen by Provider: 02/08/21 21:50 Source: patient, RN notes reviewed Mode of arrival: ambulatory Limitations: no limitations - History of Present Illness Initial Comments: Patient is a 40-year-old male that presents to the emergency department complaining of a left thumb pad laceration. He notes he was trying to open/cut a zip tie with a kitchen knife when it slipped and poked him in the left thumb. He notes that he has full range of motion feeling and sensation in his left thumb. He notes that he is up-to-date on his tetanus vaccine got one approximately 2 years ago. He denied any other issues or complaints. He was a well-appearing 40-year-old male in no apparent distress or pain. He denied chest pain shortness breath headache nausea vomiting diarrhea constipation fever fatigue chills. - Related Data Home Medications Medication Instructions Recorded Confirmed Clobetasol Propionate [Temovate 1 applic TOPICAL BID PRN 08/28/20 08/28/20 0.05% Cream] Metoprolol Succinate (ER) [Toprol 75 mg PO DAILY 08/28/20 08/28/20 XL] Prevident 5000 Toothpaste 1 applic PO BID 08/28/20 08/28/20 Previous Rx's Medication Instructions Recorded predniSONE [Deltasone] 40 mg PO DAILY 4 Days #8 tab 08/29/20 Cephalexin [Keflex] 500 mg PO Q6HR #40 cap 02/08/21 Allergies Allergy/AdvReac Type Severity Reaction Status Date / Time No Known Allergies Allergy Verified 02/08/21 21:43 Review of Systems ROS Statement: Those systems with pertinent positive or pertinent negative responses have been documented in the HPI. ROS Other: All systems not noted in ROS Statement are negative. Past Medical History Past Medical History: Hyperlipidemia, Hypertension, Sleep Apnea/CPAP/BIPAP Additional Past Medical History / Comment(s): migraines History of Any Multi-Drug Resistant Organisms: None Reported Past Surgical History: Appendectomy, Hernia Repair Past Anesthesia/Blood Transfusion Reactions: No Reported Reaction Past Psychological History: No Psychological Hx Reported Smoking Status: Current every day smoker Past Alcohol Use History: None Reported Past Drug Use History: None Reported - Past Family History Father Family Medical History: Myocardial Infarction ([place]) Additional Family Medical History / Comment(s): possible small heart attack Mother Family Medical History: CVA/TIA General Exam Limitations: no limitations General appearance: alert, in no apparent distress Head exam: Present: atraumatic, normocephalic, normal inspection Eye exam: Present: normal appearance, PERRL, EOMI. Absent: scleral icterus, conjunctival injection, periorbital swelling Neck exam: Present: normal inspection Respiratory exam: Present: normal lung sounds bilaterally. Absent: respiratory distress, wheezes, rales, rhonchi, stridor Cardiovascular Exam: Present: regular rate, normal rhythm, normal heart sounds. Absent: systolic murmur, diastolic murmur, rubs, gallop, clicks Extremities exam: Present: normal inspection, full ROM, normal capillary refill. Absent: tenderness, pedal edema, joint swelling, calf tenderness Neurological exam: Present: alert, oriented X3 Psychiatric exam: Present: normal affect, normal mood Skin exam: Present: warm, dry, intact, normal color. Absent: rash Expanded Type of lesion: Present: laceration (Small 1 cm laceration to the pad of the left thumb, nonbleeding, not erythematous margins well approximated.) Course Vital Signs 02/08/21 21:43 Temperature 98.2 F Pulse Rate 82 Respiratory 18 Rate Blood Pressure 117/81 O2 Sat by Pulse 95 Oximetry Procedures - Laceration Laceration #1 Consent Obtained: verbal consent Indication: laceration Site: hand (Left thumb pad) Size (cm): 1 Description: linear Type of Sutures: other (exofin) Patient Tolerated Procedure: well, no complications Medical Decision Making - Medical Decision Making 40-year-old male with a small laceration to left thumb pain. Skin glue ordered Patient tolerated procedure well. Case discussed with Dr. Lopes, patient can discharge home with follow-up primary care. Disposition Clinical Impression: Laceration Disposition: HOME SELF-CARE Condition: Stable Instructions (If sedation given, give patient instructions): Skin Adhesive Care (ED) Additional Instructions: Please return to the Emergency Department if symptoms worsen or any other concerns. Take antibiotics as prescribed until complete. Is patient prescribed a controlled substance at d/c from ED?: No Referrals: Alexis Langford MD [Primary Care Provider] - 1-2 days Time of Disposition: 22:26
== END 2021-02-08 22:35 | disposition home or self-care (01) ==
LOC: EC 21:29
DX: S61.012A Laceration without foreign body of left thumb without damage to nail, initial encounter (principal); I10 Essential (primary) hypertension; E78.5 Hyperlipidemia, unspecified; Z90.49 Acquired absence of other specified parts of digestive tract; F17.200 Nicotine dependence, unspecified, uncomplicated; Z79.899 Other long term (current) drug therapy; W26.0XXA Contact with knife, initial encounter
CPT/HCPCS: 12001; 99282

== ENCOUNTER → 2022-05-27 | Outpatient (CLI) | payer BC ==
[2022-05-30 17:00] LABS: Albumin, LC/MS/MS 4.4 g/dL (3.6-5.1); Testosterone, Free, LC/MS/MS 22.5 pg/mL (46.0-224.0)
== END | disposition home or self-care (01) ==
LOC: LABWHC1 07:17
PROVIDERS: ATTEND Physician Assistant
DX: E29.1 Testicular hypofunction (principal)
CPT/HCPCS: 36415; 82040; 84270; 84403

== ENCOUNTER 2022-08-27 08:02 | Emergency (ER) | payer BC ==
[2022-08-27 08:06] VITALS: TEMP 99.1
--- NOTE | 2022-08-27 08:52 | XR ---
EXAMINATION TYPE: XR finger RT DATE OF EXAM: 08/27/2022 CLINICAL HISTORY: pain TECHNIQUE: 3 views of the right third digit are submitted. COMPARISON: None FINDINGS: No displaced fracture is seen with certainty. There is soft tissue swelling noted. Extensiv e evidence of bony destructive process to suggest myelitis at this time. IMPRESSION: Correlate for cellulitis.
[2022-08-27] MEDS ORDERED: ACET/COD 300 MG/30 MG STARTER PACK 6 TAB BTL PO STA (09:52)
--- NOTE | 2022-08-27 09:52 | ED ---
Extremity Problem HPI - General Chief complaint: Extremity Problem,Nontraumatic Stated complaint: infected finger Time Seen by Provider: 08/27/22 08:09 Source: patient, RN notes reviewed Mode of arrival: ambulatory Limitations: no limitations - History of Present Illness Initial comments: 41-year-old male presents emergency Department with chief complaint infection to his right hand third digit. Patient states she's been on complaining about 60 mL dispensed and Vicodin symptoms worsen. Patient states that his nails are going to his skin. Patient has been dealing with his primary care physician. Patient offers no complaints. - Related Data Home Medications Medication Instructions Recorded Confirmed Atorvastatin [Lipitor] 20 mg PO DAILY 08/27/22 08/27/22 Metoprolol Succinate (ER) [Toprol 100 mg PO DAILY 08/27/22 08/27/22 XL] Testosterone Cypionate 200 mg IM Q14D 08/27/22 08/27/22 [Depo-Testosterone] Previous Rx's Medication Instructions Recorded clindamycin HCL 300 mg PO QID #40 cap 08/27/22 Allergies Allergy/AdvReac Type Severity Reaction Status Date / Time No Known Allergies Allergy Verified 08/27/22 09:31 Review of Systems ROS Statement: Those systems with pertinent positive or pertinent negative responses have been documented in the HPI. ROS Other: All systems not noted in ROS Statement are negative. Past Medical History Past Medical History: Hyperlipidemia, Hypertension, Sleep Apnea/CPAP/BIPAP Additional Past Medical History / Comment(s): migraines History of Any Multi-Drug Resistant Organisms: None Reported Past Surgical History: Appendectomy, Hernia Repair Past Anesthesia/Blood Transfusion Reactions: No Reported Reaction Past Psychological History: No Psychological Hx Reported Smoking Status: Vaper Past Alcohol Use History: None Reported Past Drug Use History: None Reported - Past Family History Father Family Medical History: Myocardial Infarction ([place]) Additional Family Medical History / Comment(s): possible small heart attack Mother Family Medical History: CVA/TIA General Exam Limitations: no limitations General appearance: alert, in no apparent distress Head exam: Present: atraumatic, normocephalic, normal inspection Eye exam: Present: normal appearance, PERRL, EOMI. Absent: scleral icterus, conjunctival injection, periorbital swelling Respiratory exam: Present: normal lung sounds bilaterally. Absent: respiratory distress, wheezes, rales, rhonchi, stridor Cardiovascular Exam: Present: regular rate, normal rhythm, normal heart sounds. Absent: systolic murmur, diastolic murmur, rubs, gallop, clicks Extremities exam: Present: other (Right hand third digit there is swelling on the nail fold, mild erythema and tenderness with palpation the nail is cut very short within the skin.) Course Vital Signs 08/27/22 08/27/22 08:04 09:59 Temperature 99.1 F 99.1 F Pulse Rate 94 92 Respiratory 24 18 Rate Blood Pressure 149/81 145/84 O2 Sat by Pulse 97 96 Oximetry Medical Decision Making - Medical Decision Making Was pt. sent in by a medical professional or institution (, FRAN, REHABILITATION SUPERVISOR, urgent care, hospital, or assisted...) When possible be specific @ -No Did you speak to anyone other than the patient for history (EMS, parent, family, police, friend...)? What history was obtained from this source @ -No Did you review nursing and triage notes (agree or disagree)? Why? @ -I reviewed and agree with nursing and triage notes Were old charts reviewed (outside hosp., previous admission, EMS record, old EKG, old radiological studies, urgent care reports/EKG's, assisted records)? Report findings @ -No old charts were reviewed Differential Diagnosis (chest pain, altered mental status, abdominal pain women, abdominal pain men, vaginal bleeding, weakness, fever, dyspnea, syncope, he adache, dizziness, GI bleed, back pain, seizure, CVA, palpatations, mental health, musculoskeletal)? @ -Paronychia, ingrown nail, infected ingrown nail, cellulitis EKG interpreted by me (3pts min.). @ -None X-rays interpreted by me (1pt min.). @ -X-ray shows no evidence of oximeter is, soft tissue swelling CT interpreted by me (1pt min.). @ -None done U/S interpreted by me (1pt. min.). @ -None done What testing was considered but not performed or refused? (CT, X-rays, U/S, labs)? Why? @ -None What meds were considered but not given or refused? Why? @ -None Did you discuss the management of the patient with other professionals (professionals i.e. , FRAN, REHABILITATION SUPERVISOR, lab, RT, psych nurse, manager social, criminal justice lawyer, teacher, chief resource officer, showcase maker)? Give summary @ -No Was smoking cessation discussed for >3mins.? @ -No Was critical care preformed (if so, how long)? @ -No Were there social determinants of health that impacted care today? How? (Homelessness, low income, unemployed, alcoholism, drug addiction, trans portation, low edu. Level, literacy, decrease access to med. care, correction, rehab)? @ -No Was there de-escalation of care discussed even if they declined (Discuss DNR or withdrawal of care, Hospice)? DNR status @ -No What co-morbidities impacted this encounter? (DM, HTN, Smoking, COPD, CAD, Cancer, CVA, ARF, Chemo, Hep., AIDS, mental health diagnosis, sleep apnea, morbid obesity)? @ -None Was patient admitted / discharged? Hospital course, mention meds given and route, prescriptions, significant lab abnormalities, going to OR and other pertinent info. @ -Discharge patient has infected paronychia, ingrown nail on his hand. Patient was started on antibiotics and follow-up with hand surgery. Undiagnosed new problem with uncertain prognosis? @ -No Drug Therapy requiring intensive monitoring for toxicity (Heparin, Nitro, Insulin, Cardizem)? @ -No Were any procedures done? @ -No Diagnosis/symptom? @ -Right-hand paronychia, infected ingrown nail Acute, or Chronic, or Acute on Chronic? @ -Acute Uncomplicated (without systemic symptoms) or Complicated (systemic symptoms)? @ -Uncomplicated Side effects of treatment? @ -No Exacerbation, Progression, or Severe Exacerbation? @ -No Poses a threat to life or bodily function? How? (Chest pain, [place], [place], pneumonia, PE, COPD, DKA, ARF, appy, cholecystitis, CVA, Diverticulitis, Homicidal, Suic idal, threat to staff... and all critical care pts) @ -No Disposition Clinical Impression: Infection, nail, ingrowing, Paronychia Disposition: HOME SELF-CARE Condition: Stable Instructions (If sedation given, give patient instructions): Paronychia (ED), Ingrown Nail (ED) Additional Instructions: Please return to the Emergency Department if symptoms worsen or any other concerns. Prescriptions: clindamycin HCL 300 mg PO QID #40 cap Is patient prescribed a controlled substance at d/c from ED?: No Referrals: Jose Scott DO [Primary Care Provider] - 1-2 days Danielle Elias DO [Doctor of Osteopathic Medicine] - 1-2 days Time of Disposition: 09:40
[2022-08-27 10:00] VITALS: BP 145/84; PULSE 92; RESP 18
== END 2022-08-27 10:00 | disposition home or self-care (01) ==
LOC: EC 08:02
DX: L60.0 Ingrowing nail (principal); L03.011 Cellulitis of right finger; E78.5 Hyperlipidemia, unspecified; I10 Essential (primary) hypertension; G47.30 Sleep apnea, unspecified; F17.290 Nicotine dependence, other tobacco product, uncomplicated; Z79.899 Other long term (current) drug therapy
CPT/HCPCS: 99283

== ENCOUNTER → 2023-01-22 | Outpatient (CLI) | payer BC ==
[2023-01-22 13:24] LABS: Basophils # (A) 0.04 X 10*3/uL (0.00-0.10); Basophils % (A) 0.6 %; Eosinophils # (A) 0.16 X 10*3/uL (0.04-0.35); Eosinophils % (A) 2.5 %; HCT 45.5 % (39.6-50.0); HGB 15.7 d/dL (13.0-17.0); Lymphocytes # (A) 2.13 X 10*3/uL (0.90-5.00); Lymphocytes % (A) 32.7 %; MCHC 34.5 d/dL (32.0-37.0); MCV 89.9 FL (80.0-97.0); Mean Platelet Volume 11.4 FL (9.5-12.2); Monocytes % (A) 10.7 %; NRBC Per 100 WBC 0 X 10*3/uL (0.00-0.01); Neutrophils # (A) 3.45 X 10*3/uL (1.80-7.70); Neutrophils % (A) 52.9 %; Platelet Count 169 X 10*3/uL (140-440); RBC 5.06 X 10*6/uL (4.40-5.60); RDW 12.4 % (11.5-14.5); WBC 6.52 X 10*3/uL (4.50-10.00)
[2023-01-22 14:47] LABS: ALT 69 U/L (10-49); AST 34 U/L (14-35); Albumin 4.5 d/dL (3.8-4.9); Albumin/Globulin Ratio 2.05 Ratio (1.60-3.17); Alkaline Phosphatase 75 U/L (41-126); BUN/Creat Ratio 15.75 Ratio (12.00-20.00); Blood Urea Nitrogen 12.6 mg/dL (9.0-27.0); Calcium 9.5 mg/dL (8.7-10.3); Carbon Dioxide 23.7 mmol/L (21.6-31.8); Chloride 103 mmol/L (96-109); Chol/HDL Ratio 4.22 Ratio; Globulin 2.2 d/dL (1.6-3.3); Glucose 153 mg/dL (70-110); LDL Cholesterol,Calculated 90.4 mg/dL (0.0-131.0); Potassium 4.3 mmol/L (3.5-5.5); Sodium 139 mmol/L (135-145); Total Bilirubin 0.6 mg/dL (0.3-1.2); Total Protein 6.7 d/dL (6.2-8.2)
== END | disposition home or self-care (01) ==
LOC: LABWHC1 08:21
PROVIDERS: ATTEND Family Medicine
DX: I10 Essential (primary) hypertension (principal); E11.9 Type 2 diabetes mellitus without complications; E78.2 Mixed hyperlipidemia
CPT/HCPCS: 36415; 80053; 80061; 82040; 83036; 84270; 84403; 85025

== ENCOUNTER 2023-07-12 20:13 | Emergency (ER) | payer OTHER, BC ==
[2023-07-12 20:28] VITALS: TEMP 98.6
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
[2023-07-12 20:53] LABS: Basophils # (A) 0.1 k/uL (0-0.2); Basophils % (A) 1 %; Eosinophils % (A) 10 %; HCT 44.8 % (39.0-53.0); HGB 15.8 gm/dL (13.0-17.5); Lymphocytes # (A) 3.2 k/uL (1.0-4.8); Lymphocytes % (A) 33 %; MCH 31.1 pg (25.0-35.0); MCHC 35.2 g/dL (31.0-37.0); MCV 88.3 fL (80.0-100.0); Mean Platelet Volume 8.3; Monocytes # (A) 0.6 k/uL (0-1.0); Monocytes % (A) 7 %; Neutrophils # (A) 4.8 k/uL (1.3-7.7); Neutrophils % (A) 49 %; Platelet Count 224 k/uL (150-450); RBC 5.07 m/uL (4.30-5.90); RDW 12.1 % (11.5-15.5); WBC 9.8 k/uL (3.8-10.6)
[2023-07-12 21:01] LABS: ALT 65 U/L (4-49); AST 39 U/L (17-59); African American GFR (CKD) >90 (>60 ml/min/1.73 sqM); Albumin 4.6 g/dL (3.5-5.0); Alkaline Phosphatase 72 U/L (38-126); Anion Gap 6 mmol/L; Blood Urea Nitrogen 15 mg/dL (9-20); Calcium 9.8 mg/dL (8.4-10.2); Carbon Dioxide 28 mmol/L (22-30); Chloride 102 mmol/L (98-107); Glucose 111 mg/dL (74-99); Non-African American GFR(CKD) >90 (>60 ml/min/1.73 sqM); Potassium 4.1 mmol/L (3.5-5.1); Sodium 136 mmol/L (137-145); Total Bilirubin 0.9 mg/dL (0.2-1.3); Total Protein 7.4 g/dL (6.3-8.2)
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
[2023-07-12] MEDS ORDERED: fentaNYL (PF) 50 MCG/ML 2 ML AMP IVP STA (21:59)
[2023-07-12 22:20] VITALS: RESP 14
[2023-07-12 23:04] LABS: Amorphous Sediment,Urine Rare /hpf; Appearance,Urine Clear (Clear); Bilirubin,Urine Negative (Negative); Blood,Urine Small (Negative); Color,Urine Colorless; Glucose,Urine (UA) Negative (Negative); Hyaline Casts,Urine 4 /lpf (0-2); Ketones,Urine Negative (Negative); Leukocyte Esterase,Urine Negative (Negative); Mucus,Urine Rare /hpf; Nitrite,Urine Negative (Negative); Protein,Urine Negative (Negative); RBC,Urine 7 /hpf (0-5); Specific Gravity,Urine 1.017 (1.001-1.035); Urobilinogen,Urine <2.0 mg/dL (<2.0); WBC,Urine 1 /hpf (0-5)
[2023-07-12] MEDS ORDERED: ACET/COD 300 MG/30 MG STARTER PACK 6 TAB BTL PO STA (23:13)
[2023-07-12 23:39] VITALS: BP 129/99; PULSE 72
== END 2023-07-12 23:20 | disposition home or self-care (01) ==
LOC: EC 20:13
DX: M25.522 Pain in left elbow (principal); M25.562 Pain in left knee; M79.662 Pain in left lower leg; I10 Essential (primary) hypertension; E78.5 Hyperlipidemia, unspecified; F17.290 Nicotine dependence, other tobacco product, uncomplicated; Z79.899 Other long term (current) drug therapy; V89.2XXA Person injured in unspecified motor-vehicle accident, traffic, initial encounter; Y92.410 Unspecified street and highway as the place of occurrence of the external cause
CPT/HCPCS: 36415; 93005; 80053; 85025; 81001; 72170; 73080; 73590; 73564; 71045; 72125; 70450; 99285; 96374; J3010

== ENCOUNTER 2023-07-13 19:48 | Emergency (ER) | payer OTHER, BC ==
[2023-07-13 20:11] VITALS: PULSE 90; TEMP 98.2
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
[2023-07-13] MEDS: ONDANSETRON 4 MG ODT STARTER PACK 2 TAB BTL PO STA (22:15)
[2023-07-13 22:27] VITALS: BP 112/75; RESP 18
== END 2023-07-13 22:20 | disposition home or self-care (01) ==
LOC: EC 19:48
DX: S83.92XA Sprain of unspecified site of left knee, initial encounter (principal); S69.91XA Unspecified injury of right wrist, hand and finger(s), initial encounter; I10 Essential (primary) hypertension; G47.30 Sleep apnea, unspecified; F17.290 Nicotine dependence, other tobacco product, uncomplicated; Z79.899 Other long term (current) drug therapy; V89.2XXA Person injured in unspecified motor-vehicle accident, traffic, initial encounter; Y92.410 Unspecified street and highway as the place of occurrence of the external cause
CPT/HCPCS: 73130; 73700; 99284; S0119

== ENCOUNTER → 2023-07-23 | Outpatient (CLI) | payer BC ==
[2023-07-23 13:37] LABS: Basophils # (A) 0.09 X 10*3/uL (0.00-0.10); Basophils % (A) 1.3 %; Eosinophils # (A) 0.41 X 10*3/uL (0.04-0.35); Eosinophils % (A) 5.7 %; HCT 50.7 % (39.6-50.0); HGB 17.3 g/dL (13.0-17.0); Lymphocytes # (A) 2.22 X 10*3/uL (0.90-5.00); MCH 30.9 pg (27.0-32.0); MCHC 34.1 g/dL (32.0-37.0); MCV 90.5 FL (80.0-97.0); Mean Platelet Volume 10.1 FL (9.5-12.2); Monocytes # (A) 0.65 X 10*3/uL (0.20-1.00); Monocytes % (A) 9.1 %; NRBC Per 100 WBC 0 X 10*3/uL (0.00-0.01); Neutrophils # (A) 3.76 X 10*3/uL (1.80-7.70); Neutrophils % (A) 52.6 %; Platelet Count 218 X 10*3/uL (140-440); RDW 12.1 % (11.5-14.5); WBC 7.15 X 10*3/uL (4.50-10.00)
[2023-07-23 13:53] LABS: ALT 47 U/L (10-49); AST 21 U/L (14-35); Albumin 4.7 g/dL (3.8-4.9); Albumin/Globulin Ratio 1.88 Ratio (1.60-3.17); Alkaline Phosphatase 86 U/L (41-126); Blood Urea Nitrogen 15.3 mg/dL (9.0-27.0); Calcium 10.2 mg/dL (8.7-10.3); Carbon Dioxide 24.6 mmol/L (21.6-31.8); Chloride 102 mmol/L (96-109); Chol/HDL Ratio 3.75 Ratio; Creatine Kinase 73 U/L (35-257); Globulin 2.5 g/dL (1.6-3.3); Glucose 125 mg/dL (70-110); LDL Cholesterol,Calculated 59.4 mg/dL (0.0-131.0); Potassium 4.3 mmol/L (3.5-5.5); Sodium 139 mmol/L (135-145); Total Bilirubin 0.5 mg/dL (0.3-1.2); Total Protein 7.2 g/dL (6.2-8.2)
[2023-07-23 21:28] LABS: Microalbumin Creatinine Ratio <4 mg/g Cr (0-30)
== END | disposition home or self-care (01) ==
LOC: LABWHC1 08:33
PROVIDERS: ATTEND Physician Assistant
DX: I10 Essential (primary) hypertension (principal); E11.9 Type 2 diabetes mellitus without complications; E78.2 Mixed hyperlipidemia
CPT/HCPCS: 36415; 80053; 80061; 82040; 82043; 82550; 82570; 83036; 84270; 84403; 84443; 85025

== ENCOUNTER → 2024-01-06 | Outpatient (CLI) | payer BC ==
--- NOTE | 2024-01-06 13:56 | US ---
EXAMINATION TYPE: US kidneys/renal and bladder DATE OF EXAM: 01/06/2024 COMPARISON: CT 2017 CLINICAL INDICATION: Male, 43 years old with history of M54.59 LOW BACK PAIN R30.0 DYSURIA; Hx renal stones EXAM MEASUREMENTS: Right Kidney: 12.6 x 5.3 x 4.4 cm Left Kidney: 12.7 x 5.9 x 4.9 cm Post Void Residual Volume: 0 mL Right Kidney: No hydronephrosis or masses seen Left Kidney: No hydronephrosis or masses seen Bladder: Anechoic; 231ml Bilateral Jets seen: Right only Normal Post Void Residual: Yes There is no evidence for hydronephrosis at this point in time. Corticomedullary differentiation is ma intained. No nephrolithiasis is seen. No masses are identified. The urinary bladder is anechoic. Ri ght ureteral jet is only visualized. IMPRESSION: No hydronephrosis or nephrolithiasis.
== END | disposition home or self-care (01) ==
LOC: RADUSWWP 13:09
PROVIDERS: ATTEND Family Medicine
DX: N20.0 Calculus of kidney (principal); M54.59 Other low back pain; R30.0 Dysuria
CPT/HCPCS: 76770

== ENCOUNTER → 2024-10-23 | Outpatient (CLI) | payer BC ==
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
== END | disposition home or self-care (01) ==
LOC: RADMRIMAIN 17:15
PROVIDERS: ATTEND Family Medicine
DX: R51.9 Headache, unspecified (principal); H53.9 Unspecified visual disturbance
CPT/HCPCS: 70551